=== PATIENT | male | born 1960 | race Caucasian/White ===

== ENCOUNTER 2017-07-16 18:45 | Inpatient (IN) ==
[2017-07-16] MEDS ORDERED: 0.9 % Sodium Chloride 500 ML IVC ONE (19:08)
--- NOTE | 2017-07-16 19:08 | Emergency Department Note ---
Disposition Clinical Impression: Hyponatremia, Hyperammonemia Cirrhosis Qualifiers: Hepatic cirrhosis type: alcoholic cirrhosis Ascites presence: with ascites Qualified Code(s): K70.31 - Alcoholic cirrhosis of liver with ascites Anemia Qualifiers: Anemia type: unspecified type Qualified Code(s): D64.9 - Anemia, unspecified Hypotension Qualifiers: Hypotension type: unspecified hypotension type Qualified Code(s): I95.9 - Hypotension, unspecified Disposition: Admitted As Inpatient Time of Disposition: 21:14 General Adult HPI - General Chief complaint: ED Shortness of Breath/Dyspnea Stated complaint: S/P stent placement DAVID weakness Time Seen by Provider: 07/16/17 19:06 Source: patient Limitations: no limitations Nursing Notes Reviewed: Yes Vital Signs Reviewed: Yes - History of Present Illness HPI Narrative: 57-year-old male history of alcohol cirrhosis and CAD presents to emergency department for complaints of weakness and difficulty breathing. 3 weeks ago he had a heart catheterization with stent placement. He is on aspirin. Since then he has been feeling more week than usual. He typically gets paracentesis twice a week his most recent today at 9 o'clock by interventional radiology. He reports roughly 5 L of fluid was removed. He denies any abdominal pain or tenderness. He states despite having fluid taken off his belly it still appears larger than typically after paracentesis. He does not take lactulose. He complains of a nonproductive cough. He is a smoker and is currently on Chantix to quit. He denies any chest pain at this time. He reports some lightheadedness but denies any syncope. Denies any nausea or vomiting. He denies any falls or trauma. Pain Scale: 0 - Related Data Home Medications Medication Instructions Recorded Confirmed No Known Home Drugs 07/16/17 07/16/17 Allergies Allergy/AdvReac Type Severity Reaction Status Date / Time No Known Allergies Allergy Verified 07/16/17 20:01 All systems ED: reviewed and negative except as stated. Review of Systems: As Per HPI Constitutional: Reports: weakness. Denies: fever, chills ENT ED: Denies: congestion Cardiovascular: Denies: chest pain Respiratory: Reports: cough, dyspnea Gastrointestinal: Denies: abdominal pain, nausea, vomiting, diarrhea Genitourinary: Denies: urgency, dysuria Musculoskeletal: Denies: back pain, neck pain Integumentary: Denies: rash, abrasion Neurological: Denies: headache, weakness, numbness, confusion Endocrine: Reports: fatigue Past Medical History - Past Medical History Attestation: Yes The following information was validated with the patient. Source: patient Medical history: Reports: non-contributory Psychiatric history: Reports: no psych history - Social History Smoking Status: Never smoker Smokeless Tobacco Status: No Alcohol use: Reports: none Drug use: Reports: none Physical Exam - General Limitations: no limitations General appearance: alert, in no apparent distress - Head Head exam: atraumatic, normocephalic, normal inspection - Eye Eye exam: Present: normal appearance, PERRL, EOMI, scleral icterus (MILD) - ENT ENT exam: normal exam, normal oropharynx, mucous membranes moist - Neck Neck exam: Present: normal inspection, full ROM, trachea midline - Chest Chest inspection: Present: normal inspection, symmetric chest wall rise. Absent : tenderness - Respiratory Respiratory exam: Present: wheezes (MILD, EXPIRATORY). Absent: respiratory distress - Cardiovascular Cardiovascular exam: Present: regular rate, normal rhythm, normal heart sounds. Absent: systolic murmur, diastolic murmur - Abdominal Exam Abdominal exam: Present: soft, Non-Tender, distention, ascites. Absent: tenderness, guarding, rebound, rigidity - Extremities Exam Extremities exam: Present: normal inspection, full ROM, pedal edema (BILATERAL + 2 PITTING). Absent: tenderness - Neurological Exam Neurological exam: Present: alert, oriented X3, other (ASTERIXIS) - Psychiatric Psychiatric exam: Present: normal mood, flat affect - Skin Skin exam: Present: other (JAUNDICE) Course Course Narrative: Elif was seen on arrival here in emergency department. His vital signs she is hypotensive systolic 72 to 80. On rechecking remains low. Will infuse some albumin given his recent paracentesis. Lungs are wheezing bilaterally. Abdomen remains large with fluid way but not fully distended. No abdominal tenderness. He has Asterix is on examination. He is jaundice. He states he is not a candidate for transplant. He sees gastroenterology Dr. Turner. His heart catheterization was performed at [facility]. Will attempt to obtain records. Will check basic labs, hepatic panel, INR, ammonia level as well as a chest x-ray. - Reevaluation(s) Reevaluation #1: Labs reviewed shows critical hyponatremia 119 with elevated potassium 6.1. Creatinine's normal 1.19. Ammonia is elevated 111. His troponin was less than 0.03. His blood pressure has increased slightly with albumin infusion. Currently infusing still but his MAPs remain >65. Patient remains awake alert and oriented. Abdomen remain soft but mildly distended. No abdominal tenderness. Patient will be administered Lasix to help some diuresis. Lactulose and rifaximin have been ordered. Patient has been accepted to the intensive care unit for continued monitoring of hyponatremia. He remains in stable condition. Impression is cirrhosis, hypotension s/p paracentesis, hyperammonemia, hyponatremia. - Consultations Consultation #1: Spoke with on-call hospitalist oliver Jeter to admit to intensive care unit or hyponatremia, weakness, hyperammonemia, cirrhosis, hypotension. No further orders at this time Time: 21:12 Vital Signs Temperature 97.8 F 07/16/17 18:48 Pulse Rate 66 07/16/17 18:48 Respiratory Rate 18 07/16/17 18:48 Blood Pressure 78/40 07/16/17 18:48 O2 Sat by Pulse Oximetry 98 07/16/17 18:48 Temperature 98.7 F 07/17/17 05:00 Pulse Rate 64 07/17/17 05:00 Respiratory Rate 22 07/17/17 05:00 Blood Pressure 83/45 07/17/17 05:00 O2 Sat by Pulse Oximetry 97 07/17/17 05:00 Oxygen Delivery Oxygen Delivery Room Air Medical Decision Making - MDM Narrative Medical decision making narrative: Patient was discussed with my attending physician who agrees with ED management and final disposition. They independently evaluated the patient. Please refer to their attestation to this encounter for additional information. This note was generated by [employer] voice recognition software and as a result grammatical or spelling errors may occur using this program. - Medical Records Medical records reviewed: Yes I reviewed the patient's medical records. - Lab Data Lab results reviewed: Yes I reviewed the patient's lab results. Result diagrams: 07/17/17 02:20 07/17/17 02:20 Lab Results 07/16/17 07/16/17 07/16/17 Range/Units 19:30 19:30 19:30 WBC 9.0 (4.3-11.1) K/mcL RBC 2.34 L (4.19-5.50) M/mcL Hgb 7.8 L (12.9-16.9) g/dL Hct 21.1 L (37.5-50.1) % MCV 90.2 (83.0-100.0) fL MCH 33.3 (28.0-33.3) pg MCHC 37.0 H (31.6-35.5) g/dL RDW 15.5 H (11.5-14.5) % Plt Count 168 (140-400) K/mcL MPV 9.7 (9.4-12.4) fL Immature Gran % 3.0 (0-4) % Seg Neutrophils % 78.2 % Lymphocytes % 8.5 % Monocytes % 8.7 % Eosinophils % 1.3 % Basophils % 0.3 % Neutrophils # 7.0 (1.6-8.9) K/mcL Lymphocytes # 0.8 (0.6-4.6) K/mcL Monocytes # 0.8 (0.0-1.3) K/mcL Eosinophils # 0.1 (0.0-0.6) K/mcL Basophils # 0.0 (0.0-0.2) K/mcL PT 16.0 H (9.4-12.1) Seconds INR 1.5 APTT 28.9 (26.0-36.0) Seconds Sodium 119 L* (136-145) mEq/L Potassium 6.1 H (3.5-5.1) mEq/L Chloride 90 L (98-107) mEq/L Carbon Dioxide 27 (23-29) mEq/L BUN 52 H (6-20) mg/dL Creatinine 1.19 (0.70-1.30) mg/dL Est GFR ( Amer) > 60 (> 60) Est GFR (Non-Af Amer) > 60 (> 60) BUN/Creatinine Ratio 44 H (6-26) Glucose 150 H (70-105) mg/dL Calculated Osmolality 265 L (280-300) Lactic Acid (0.5-2.2) mmol/L Calcium 7.9 L (8.6-10.3) mg/dL Total Bilirubin 1.0 (0.3-1.0) mg/dL Direct Bilirubin 0.2 (0.0-0.2) mg/dL Indirect Bilirubin 0.8 (0.0-1.2) mg/dL AST 36 (13-39) Units/L ALT 31 (7-52) Units/L Alkaline Phosphatase 76 (34-104) Units/L Ammonia (16-53) mcmol/L Troponin I < 0.03 (< 0.04) ng/mL B-Natriuretic Peptide (Less than 100) pg/mL Serum Total Protein 4.8 L (6.4-8.9) g/dL Albumin 2.2 L (3.5-5.7) g/dL Globulin 2.6 (2.4-3.5) g/dL Albumin/Globulin Ratio 0.8 L (1.1-2.2) Urine Color (Yellow) Urine Clarity (Clear) Urine pH (5.0-8.0) pH Units Ur Specific [place] (1.010-1.025) Urine Protein (Neg-Trace) mg/dL Urine Glucose (UA) (Normal) mg/dL Urine Ketones (Negative) mg/dL Urine Blood (Negative) Urine Nitrite (Negative) Urine Bilirubin (Negative) Urine Urobilinogen (Normal) mg/dL Ur Leukocyte Esterase (Negative) Urine Microscopic RBC (0-3) per hpf Urine Microscopic WBC (0-3) per hpf Ur Squamous Epith Cells (None-Few) per lpf Urine Bacteria (None-Few) per hpf Hyaline Casts (None-Few) per lpf Ur Culture Indicated? (NO) 07/16/17 07/16/17 07/16/17 Range/Units 19:30 19:30 19:30 WBC (4.3-11.1) K/mcL RBC (4.19-5.50) M/mcL Hgb (12.9-16.9) g/dL Hct (37.5-50.1) % MCV (83.0-100.0) fL MCH (28.0-33.3) pg MCHC (31.6-35.5) g/dL RDW (11.5-14.5) % Plt Count (140-400) K/mcL MPV (9.4-12.4) fL Immature Gran % (0-4) % Seg Neutrophils % % Lymphocytes % % Monocytes % % Eosinophils % % Basophils % % Neutrophils # (1.6-8.9) K/mcL Lymphocytes # (0.6-4.6) K/mcL Monocytes # (0.0-1.3) K/mcL Eosinophils # (0.0-0.6) K/mcL Basophils # (0.0-0.2) K/mcL PT (9.4-12.1) Seconds INR APTT (26.0-36.0) Seconds Sodium (136-145) mEq/L Potassium (3.5-5.1) mEq/L Chloride (98-107) mEq/L Carbon Dioxide (23-29) mEq/L BUN (6-20) mg/dL Creatinine (0.70-1.30) mg/dL Est GFR ( Amer) (> 60) Est GFR (Non-Af Amer) (> 60) BUN/Creatinine Ratio (6-26) Glucose (70-105) mg/dL Calculated Osmolality (280-300) Lactic Acid 1.7 (0.5-2.2) mmol/L Calcium (8.6-10.3) mg/dL Total Bilirubin (0.3-1.0) mg/dL Direct Bilirubin (0.0-0.2) mg/dL Indirect Bilirubin (0.0-1.2) mg/dL AST (13-39) Units/L ALT (7-52) Units/L Alkaline Phosphatase (34-104) Units/L Ammonia 111 H (16-53) mcmol/L Troponin I (< 0.04) ng/mL B-Natriuretic Peptide 18 (Less than 100) pg/mL Serum Total Protein (6.4-8.9) g/dL Albumin (3.5-5.7) g/dL Globulin (2.4-3.5) g/dL Albumin/Globulin Ratio (1.1-2.2) Urine Color (Yellow) Urine Clarity (Clear) Urine pH (5.0-8.0) pH Units Ur Specific [place] (1.010-1.025) Urine Protein (Neg-Trace) mg/dL Urine Glucose (UA) (Normal) mg/dL Urine Ketones (Negative) mg/dL Urine Blood (Negative) Urine Nitrite (Negative) Urine Bilirubin (Negative) Urine Urobilinogen (Normal) mg/dL Ur Leukocyte Esterase (Negative) Urine Microscopic RBC (0-3) per hpf Urine Microscopic WBC (0-3) per hpf Ur Squamous Epith Cells (None-Few) per lpf Urine Bacteria (None-Few) per hpf Hyaline Casts (None-Few) per lpf Ur Culture Indicated? (NO) 07/16/17 Range/Units 23:10 WBC (4.3-11.1) K/mcL RBC (4.19-5.50) M/mcL Hgb (12.9-16.9) g/dL Hct (37.5-50.1) % MCV (83.0-100.0) fL MCH (28.0-33.3) pg MCHC (31.6-35.5) g/dL RDW (11.5-14.5) % Plt Count (140-400) K/mcL MPV (9.4-12.4) fL Immature Gran % (0-4) % Seg Neutrophils % % Lymphocytes % % Monocytes % % Eosinophils % % Basophils % % Neutrophils # (1.6-8.9) K/mcL Lymphocytes # (0.6-4.6) K/mcL Monocytes # (0.0-1.3) K/mcL Eosinophils # (0.0-0.6) K/mcL Basophils # (0.0-0.2) K/mcL PT (9.4-12.1) Seconds INR APTT (26.0-36.0) Seconds Sodium (136-145) mEq/L Potassium (3.5-5.1) mEq/L Chloride (98-107) mEq/L Carbon Dioxide (23-29) mEq/L BUN (6-20) mg/dL Creatinine (0.70-1.30) mg/dL Est GFR ( Amer) (> 60) Est GFR (Non-Af Amer) (> 60) BUN/Creatinine Ratio (6-26) Glucose (70-105) mg/dL Calculated Osmolality (280-300) Lactic Acid (0.5-2.2) mmol/L Calcium (8.6-10.3) mg/dL Total Bilirubin (0.3-1.0) mg/dL Direct Bilirubin (0.0-0.2) mg/dL Indirect Bilirubin (0.0-1.2) mg/dL AST (13-39) Units/L ALT (7-52) Units/L Alkaline Phosphatase (34-104) Units/L Ammonia (16-53) mcmol/L Troponin I (< 0.04) ng/mL B-Natriuretic Peptide (Less than 100) pg/mL Serum Total Protein (6.4-8.9) g/dL Albumin (3.5-5.7) g/dL Globulin (2.4-3.5) g/dL Albumin/Globulin Ratio (1.1-2.2) Urine Color Yellow (Yellow) Urine Clarity Clear (Clear) Urine pH 5.5 (5.0-8.0) pH Units Ur Specific [place] 1.016 (1.010-1.025) Urine Protein Negative (Neg-Trace) mg/dL Urine Glucose (UA) Normal (Normal) mg/dL Urine Ketones Negative (Negative) mg/dL Urine Blood Negative (Negative) Urine Nitrite Negative (Negative) Urine Bilirubin Negative (Negative) Urine Urobilinogen Normal (Normal) mg/dL Ur Leukocyte Esterase Negative (Negative) Urine Microscopic RBC 3-5 H (0-3) per hpf Urine Microscopic WBC 0-3 (0-3) per hpf Ur Squamous Epith Cells Moderate H (None-Few) per lpf Urine Bacteria None Seen (None-Few) per hpf Hyaline Casts None Seen (None-Few) per lpf Ur Culture Indicated? NO (NO) - Radiology Data Radiology results reviewed: Yes I reviewed the patient's radiology results. Chest X-Ray 07/16/17 19:07 IMPRESSION: No acute abnormality is identified. D/ / Pieter Eric MD / Pieter Eric MD Interpreting Provider: Pieter Eric MD - EKG Data EKG #1 EKG attestation: Yes I reviewed and interpreted this EKG. EKG results narrative: EKG performed 1900 normal sinus rhythm 65 beats per minute, normal axis, no ST elevation or depression, possible incomplete right bundle branch, intervals within normal limits. There is no old EKG available for comparison at this time. No acute ischemic changes. Attestation Statement - Attestation Attestation: I examined this patient and my medical decision-making was reviewed with the Resident Physician. I agree with the documented findings, disposition and treatment plan as described except to the extent set forth below. Hyponatremia , weakness, hyperkalemia. We will proceed with treatment of hyperkalemia as well as treatment of hyponatremia. I do suspect there is normal serum body sodium but volume overload. We will proceed with diuresis. Patient will be admitted the intensive care unit. He did have low blood pressure and was requiring albumin. I spent greater than 35 minutes of critical care time resuscitating this acutely ill male suffering from hypotension, hyponatremia, ascites. This was excluding billable procedures.
[2017-07-16] MEDS ORDERED: Albumin 25% 25gram/100mL 25 GM/100 ML IV.SOLN IVPB ONE (19:18)
[2017-07-16] MEDS ORDERED: Albumin 25% 25gram/100mL 25 GM/100 ML IV.SOLN IVC SCH (19:30)
[2017-07-16] MEDS ORDERED: Ipratropium/Albuterol Neb 3 ML IH ONE (19:43)
[2017-07-16 19:48] LABS: Basophils % 0.3 %; Eosinophils # 0.1 K/mcL (0.0-0.6); Eosinophils % 1.3 %; Hematocrit 21.1 % (37.5-50.1); Lymphocytes # 0.8 K/mcL (0.6-4.6); Lymphocytes % 8.5 %; Mean Corpuscular Hemoglobin 33.3 pg (28.0-33.3); Mean Corpuscular Volume 90.2 fL (83.0-100.0); Mean Platelet Volume 9.7 fL (9.4-12.4); Monocytes # 0.8 K/mcL (0.0-1.3); Monocytes % 8.7 %; Platelet Count 168 K/mcL (140-400); Red Blood Count 2.34 M/mcL (4.19-5.50); Red Cell Distribution Width 15.5 % (11.5-14.5); Segmented Neutrophils % 78.2 %
[2017-07-16 19:49] LABS: Hemoglobin 7.8 g/dL (12.9-16.9)
[2017-07-16 19:53] LABS: INR 1.5
[2017-07-16 19:55] LABS: Activated Partial Thrombo Time 28.9 Seconds (26.0-36.0)
[2017-07-16 20:12] LABS: Alanine Aminotransferase 31 Units/L (7-52); Albumin 2.2 g/dL (3.5-5.7); Albumin/Globulin Ratio 0.8 (1.1-2.2); Alkaline Phosphatase 76 Units/L (34-104); Aspartate Amino Transferase 36 Units/L (13-39); BUN/Creatinine Ratio 44 (6-26); Bilirubin,Direct 0.2 mg/dL (0.0-0.2); Bilirubin,Indirect 0.8 mg/dL (0.0-1.2); Blood Urea Nitrogen 52 mg/dL (6-20); Calcium 7.9 mg/dL (8.6-10.3); Carbon Dioxide 27 mEq/L (23-29); Chloride 90 mEq/L (98-107); Globulin 2.6 g/dL (2.4-3.5); Glucose 150 mg/dL (70-105); Osmolality,Calculated 265 (280-300); Potassium 6.1 mEq/L (3.5-5.1); Sodium 119 mEq/L (136-145); Total Protein 4.8 g/dL (6.4-8.9); Troponin I < 0.03 ng/mL (< 0.04); eGFR For African Americans > 60 (> 60); eGFR For Non-African Americans > 60 (> 60)
[2017-07-16] MEDS ORDERED: Furosemide 40 MG/4 ML VIAL IVP ONE (20:44)
[2017-07-16] MEDS ORDERED: Lactulose Oral Soln 20 GM/30 ML UDC PO ONE (20:45)
[2017-07-16 23:21] LABS: Bilirubin,Urine Negative (Negative); Blood,Urine Negative (Negative); Clarity,Urine Clear (Clear); Color,Urine Yellow (Yellow); Glucose,Urine (UA) Normal (Normal); Ketones,Urine Negative (Negative); Leukocyte Esterase,Urine Negative (Negative); Nitrite,Urine Negative (Negative); PH,Urine 5.5 pH Units (5.0-8.0); Protein,Urine Negative (Neg-Trace); Specific Gravity,Urine 1.016 (1.010-1.025); Urobilinogen,Urine Normal (Normal)
[2017-07-16 23:23] LABS: Bacteria,Urine None Seen per hpf (None-Few); Hyaline Casts,Urine None Seen per lpf (None-Few); Squamous Epithelial Cell,Urine Moderate per lpf (None-Few); WBC,Urine 0-3 per hpf (0-3)
[2017-07-17] MEDS ORDERED: Naloxone 0.4 MG/ML INJ IVP PRN (01:14)
[2017-07-17] MEDS: Hydrocortisone Sodium Succ 100 MG/2 ML VIAL IVP SCH ×2 (01:39→08:36)
[2017-07-17] MEDS: Pantoprazole 40 MG in 0.9 % Sodium Chloride Mini Bag 100 ML IVC SCH ×5 (01:41→21:57)
--- NOTE | 2017-07-17 01:53 | Internal Med History&Physical ---
Date of Encounter: 07/17/17 Time of Encounter: 00:10 Internal Medicine - H&P: HPI Chief complaint: weakness; difficulty breathing; coffee ground emesis Admitted From: Emergency Dept Plans for Post Hospital Care: Home History of present illness: Mr. Hutchinson is a 57 year old male who presents to our ER tonight with complaints of weakness, shortness of breath, coffee-ground emesis, and occasional vomiting blood. He was seen in the ER and admitted to ICU because of critical hyponatremia, hyperkalemia, and anemia. Upon my assessment of the patient, patient appears mildly jaundiced, has significant ascites, and has physical stigmata of cirrhosis. He has never been here before and we have no old records on patient. I met with patient and his at length and obtained history. Patient suffers from cirrhosis secondary to alcoholism. Hes been alcohol free for almost a year now. He follows with a pony ride attendant in [place] and had paracentesis done today. He has this procedure done every 2 weeks for therapeutic intervention. He is a liver transplant candidate at [facility], but he was recently taken off the transplant list due to recent angioplasty and stent placement in his coronary arteries. This was also done at [facility] as well. He takes aspirin and Plavix now, and he has noted increased stomach upset, coffee-ground emesis, occasional vomiting blood. After his paracentesis today, he felt weak, dizzy, and unable to stand. He was unable stay home, so he sought help. He and his decided to come to [facility] and [facility] and/or [facility]. Therefore, he was evaluated in the ER and admitted to hospitalist group. As he was being transported to the ICU from the ER, patient had a large episode of coffee-ground emesis. He remains borderline hypotensive, pale, and weak. I inquired about the possibility of esophageal varices. Patient and do not believe he has had varices, but they cannot confirm this. His last EGD was over a year ago. The GI bleeding he's encountered is relatively new over the last few days. I discussed with patient and his that he most likely needs to be at a [facility] with hepatology and transplant services. Furthermore, we do not have any gastroenterology coverage [facility] in the event he develops a variceal bleed. Our endoscopist diego is Dr. Tovar, and I called and confirmed with him that he does not perform variceal banding. Therefore, I recommended transfer to a [facility] such as [facility] or [facility]. Patient and his both refused transfer and requested to stay here. I emphasized to them that in the event he develops an acute variceal bleed, this can be life- threatening and may result in , especially given that we do not have the capability to stabilize such a bleed at this moment. They both voiced understanding and still requested to stay here, assuming the risk of variceal bleed. Should he stabilize and not have any further bleeding, we will consult GI in the morning, but they are presently unavailable for endoscopy services. I explained to them in great detail the possibility of variceal bleeding, inability to control the bleed, and the likelihood of imminent in such an event without GI services being available. They again voiced understanding and were adamant at remaining at [facility] and not transferring to any facility at this time. As such, we will proceed with conservative measures as best we can. I will transfuse him with blood products, give him vitamin K for coagulopathy of liver disease, monitor him in ICU closely, and consult pulmonology and gastroenterology in the morning when they are available. Past Med Surg Social Fam HX - Past Medical History Attestation: Yes The following information was validated with the patient. Source: patient, obtained from family Medical history: cirrhosis, coronary artery disease Psychiatric history: no psych history - Past Surgical History Surgical History: angioplasty/stent - Social History Smoking Status: Never smoker Packs per day: 2 Smokeless Tobacco Status: No Alcohol use: none Drug use: none Current living situation: Home, With Family Activity Level: Independent ambulation Recent Out of Country Travel Within the Last 8 Weeks: No Additional social history: frmer heavy drinker -- alcoholism; quit drinking August - Family History Mother Living Status: Internal Medicine - H&P: Meds No Known Home Drugs 07/16/17 [History] 3 Allergy/AdvReac Type Severity Reaction Status Date / Time No Known Allergies Allergy Verified 07/16/17 20:01 - Constitutional Constitutional: fatigue, lethargy, weakness, no fever(s) - EENT Eyes: no blurry vision, no change in vision Ears: no ear pain, no tinnitus Nose, mouth and throat: no nasal congestion, no sinus pressure, no sore throat - Cardiovascular Cardiovascular ROS IM: dyspnea, dyspnea on exertion, edema, orthopnea, no chest pain - Respiratory Respiratory: no cough, no hemoptysis, no chest congestion, no excessive phlegm production, no change in phlegm color - Gastrointestinal Gastrointestinal: bloating, coffee ground emesis, hematemesis, no abdominal pain , no diarrhea, no hematochezia, no melena, no nausea - Genitourinary Genitourinary ROS male: no dysuria, no flank pain, no hematuria - Musculoskeletal Musculoskeletal ROS IM: no muscle cramps, no myalgias - Integumentary Integumentary IM: unusual bruising, jaundice, no rash - Neurological Neurological ROS: weakness, no dizziness, no focal weakness, no frequent falls, no headache(s) - Psychiatric Psychiatric: no anxiety, no depression - Endocrine Endocrine IM: no cold intolerance, no polydipsia, no polyuria - Hematologic/Lymphatic Hematologic/Lymphatic: easy bruising, no lymphadenopathy - Allergic/Immunologic Allergic/Immunologic: no GI upset with certain foods - Constitutional Vitals: Temp Pulse Resp BP Pulse Ox 97.8 F 63 18 85/46 96 07/16/17 23:48 07/17/17 01:00 07/17/17 01:00 07/17/17 01:00 07/17/17 01:00 General appearance: Present: mild distress, A&O X 3, answers questions appropriately Exam: weak, pale, jaundiced - Head Head exam: Present: atraumatic, normal inspection - Eye Eye exam: Present: EOMI, PERRL, scleral icterus Pupils: Present: normal accommodation - ENT ENT exam: Present: mucous membranes dry, normal oropharynx - Neck Neck exam general surgery: Present: full ROM, supple. Absent: tenderness, nuchal rigidity, thyromegaly - Respiratory Respiratory exam: Present: CTAB. Absent: chest wall tenderness, rales, rhonchi , wheezes - Cardiovascular Cardiovascular exam: Present: RRR, +S1, +S2. Absent: diastolic murmur, JVD, systolic murmur - GI/Abdominal GI/Abdominal exam: Present: distended, soft, tenderness (minimal tenderness). Absent: guarding, hepatomegaly, mass, rebound, splenomegaly Additional comments: + fluid wave and shifting dullness - Extremities Exam Extremities exam: Present: full ROM, pedal edema (2+), warm, radial pulses palpable and symmetrical. Absent: calf tenderness, joint swelling, normal capillary refill (delayed; roguhly 4 seconds) - Back Exam Back exam: Absent: CVA tenderness (L), CVA tenderness (R) - Neurological Exam Neurological exam: Present: alert, oriented X3, no focal deficits Additional comments: weak and fatigued but no focal deficits - Psychiatric Psychiatric exam: Present: flat affect. Absent: anxious, depressed, homicidal ideation, suicidal ideation - Skin Skin exam: Present: dry, pallor, warm Additional comments: bruising and subtle jaundice throughout Internal Med - H&P Results - Labs CBC & Chem 7: 07/17/17 02:20 07/17/17 02:20 - EKG Data -: EKG Interpreted by Myself - EKG Data Prior EKG available for review: no EKG comments: 07/17/17 02:17 NSR; incomplete RBBB - Diagnostic Studies Chest x-ray Status: image reviewed by me (negative) - Assessment and plan (1) UGI bleed Current Visit: Yes Status: Acute Assessment and plan: 1. I suspect variceal bleed and/or gastric ulcer. 2. npo. 3. Protonix drip. 4. Transfuse blood products and monitor H/H closely. 5. Consult GI in the morning -- presently unavailable. 6. Recommend transfer to a tertiary care medical/transplant center -- patient and refuse. 7. Patient at high risk of if he develops a variceal bleed tonight in the absence of gastroenterology services. 8. Vitamin K given in hopes of reversing coagulopathy of liver disease. Total of 75 minutes critical care time with patient (2) CAD (coronary artery disease) Current Visit: Yes Status: Chronic Assessment and plan: 1. Unable to administer ASA or Plavix due to active GI bleed. 2. Patient denies chest pain. 3. Patient at risk of STENT failure/thrombosis in the absence of ASA/Plavix. However, risk of GI bleeding and are greater at this moment and preclude treatment with dual anti-platelet therapy. Resume once GI bleeding stabilized. 4. Will trend troponins and order ECHO. Qualifiers: Coronary Disease-Associated Artery/Lesion type: [place] artery [place] vs. transplanted heart: [place] heart Associated angina: without angina Qualified Code(s): I25.10 - Atherosclerotic heart disease of [place] coronary artery without angina pectoris (3) Cirrhosis Current Visit: Yes Status: Chronic Assessment and plan: 1. Patient needs to follow with hepatology at a transplant center. 2. Patient and refuse to be transferred at this time. 3. Consult GI this morning when available. 4. Ultimately, patient will need services not available here at [facility]. Qualifiers: Hepatic cirrhosis type: alcoholic cirrhosis Ascites presence: with ascites Qualified Code(s): K70.31 - Alcoholic cirrhosis of liver with ascites (4) Hyponatremia Current Visit: Yes Status: Acute Assessment and plan: 1. Likely due to Cirrhosis. 2. Patient is volume overloaded due to cirrhosis. 3. Monitor serum sodium levels clsoely. 4. Given hyponatrmeia and hyperkalemia in the setting of weakness and hypotension, I worry about adrenal insufficiency. As such, will treat empirically with Hydorcortisone 100 mg IV Q8H. (5) DVT prophylaxis Current Visit: Yes Status: Acute Assessment and plan: 1. EPCD's.
[2017-07-17 03:15] LABS: Basophils % 0.1 %; Eosinophils % 0.4 %; Hematocrit 18.1 % (37.5-50.1); Hemoglobin 6.4 g/dL (12.9-16.9); Immature Granulocytes % 1.2 % (0-4); Lymphocytes # 0.8 K/mcL (0.6-4.6); Lymphocytes % 10.5 %; Mean Corpuscular HGB Conc 35.4 g/dL (31.6-35.5); Mean Corpuscular Hemoglobin 31.7 pg (28.0-33.3); Mean Corpuscular Volume 89.6 fL (83.0-100.0); Mean Platelet Volume 9.6 fL (9.4-12.4); Monocytes # 0.8 K/mcL (0.0-1.3); Monocytes % 10.7 %; Neutrophils # 5.8 K/mcL (1.6-8.9); Platelet Count 117 K/mcL (140-400); Red Blood Count 2.02 M/mcL (4.19-5.50); Red Cell Distribution Width 15.2 % (11.5-14.5); Segmented Neutrophils % 77.1 %
[2017-07-17 03:19] LABS: INR 1.4; Prothrombin Time 15.6 Seconds (9.4-12.1)
[2017-07-17 03:22] LABS: Activated Partial Thrombo Time 28.7 Seconds (26.0-36.0)
[2017-07-17 03:30] LABS: Alanine Aminotransferase 33 Units/L (7-52); Albumin 2.5 g/dL (3.5-5.7); Alkaline Phosphatase 62 Units/L (34-104); Aspartate Amino Transferase 40 Units/L (13-39); BUN/Creatinine Ratio 51 (6-26); Bilirubin,Direct 0.3 mg/dL (0.0-0.2); Bilirubin,Indirect 0.7 mg/dL (0.0-1.2); Blood Urea Nitrogen 60 mg/dL (6-20); Calcium 8.2 mg/dL (8.6-10.3); Carbon Dioxide 26 mEq/L (23-29); Chloride 91 mEq/L (98-107); Globulin 2.4 g/dL (2.4-3.5); Glucose 141 mg/dL (70-105); Osmolality,Calculated 273 (280-300); Potassium 5.6 mEq/L (3.5-5.1); Sodium 122 mEq/L (136-145); Total Protein 4.9 g/dL (6.4-8.9); eGFR For African Americans > 60 (> 60); eGFR For Non-African Americans > 60 (> 60)
[2017-07-17] MEDS ORDERED: 0.9 % Sodium Chloride 250 ML ONE (04:15)
[2017-07-17] MEDS ORDERED: MetroNIDAZOLE 500 MG/100 ML 500 MG/100 ML BAG IVPB SCH (08:00)
--- NOTE | 2017-07-17 08:26 | Pulmonology Consult Note ---
<Lai Brody W - Last Filed: 07/17/17 10:39> Date of Encounter: 07/17/17 Medications and Allergies Ammonium Lactate [Ammonium Lactate] 1 appl TP BID 07/17/17 [History] Aspirin [Lo-Dose Aspirin EC] 81 mg PO DAILY 07/17/17 [History] Calcium Carbonate [Calcium] 500 mg PO DAILY 07/17/17 [History] Carvedilol [Carvedilol] 3.125 mg PO BID 07/17/17 [History] Clopidogrel [Plavix] 75 mg PO DAILY 07/17/17 [History] DiphenhydraMINE [Benadryl] 50 mg PO HS PRN 07/17/17 [History] Ergocalciferol (VITAMIN D2) [Vitamin D2] 50,000 unit PO QWEEK 07/17/17 [History] Fluticasone/Salmeterol [Advair 250-50 Diskus] 1 puff IH BID 07/17/17 [History] Furosemide [Lasix] 80 mg PO DAILY 07/17/17 [History] Melatonin 8 mg PO HS 07/17/17 [History] Varenicline Tartrate [Chantix Starting Month YAMILET] 1 tab PO DAILY 07/17/17 [ History] 3 Allergy/AdvReac Type Severity Reaction Status Date / Time No Known Allergies Allergy Verified 07/17/17 08:53 All Systems: The remainder of the systems were reviewed and are negative Physical Examination Vital Signs: Vital Signs, Last 4 Hours Temp Pulse Resp BP Pulse Ox 07/17/17 09:00 63 16 111/58 96 07/17/17 08:00 65 16 104/52 97 07/17/17 07:37 98.0 F 07/17/17 07:36 61 07/17/17 07:00 62 14 106/46 98 07/17/17 06:56 97.3 F L 61 14 86/48 98 07/17/17 06:45 97.3 F L 58 16 86/48 96 07/17/17 06:00 65 18 90/47 99 Results - Laboratory Findings CBC and BMP: 07/17/17 02:20 07/17/17 02:20 PT/INR, D-dimer PT 15.6 Seconds (9.4-12.1) H 07/17/17 02:20 Abnormal lab findings: Abnormal lab results RBC 2.02 M/mcL (4.19-5.50) L 07/17/17 02:20 Hgb 6.4 g/dL (12.9-16.9) L 07/17/17 02:20 Hct 18.1 % (37.5-50.1) L 07/17/17 02:20 RDW 15.2 % (11.5-14.5) H 07/17/17 02:20 Plt Count 117 K/mcL (140-400) L 07/17/17 02:20 PT 15.6 Seconds (9.4-12.1) H 07/17/17 02:20 Sodium 122 mEq/L (136-145) L 07/17/17 02:20 Potassium 5.6 mEq/L (3.5-5.1) H 07/17/17 02:20 Chloride 91 mEq/L (98-107) L 07/17/17 02:20 BUN 60 mg/dL (6-20) H 07/17/17 02:20 BUN/Creatinine Ratio 51 (6-26) H 07/17/17 02:20 Glucose 141 mg/dL (70-105) H 07/17/17 02:20 POC Glucose 167 mg/dL (70-99) H 07/16/17 23:48 Calculated Osmolality 273 (280-300) L 07/17/17 02:20 Calcium 8.2 mg/dL (8.6-10.3) L 07/17/17 02:20 Direct Bilirubin 0.3 mg/dL (0.0-0.2) H 07/17/17 02:20 AST 40 Units/L (13-39) H 07/17/17 02:20 Ammonia 111 mcmol/L (16-53) H 07/16/17 19:30 Serum Total Protein 4.9 g/dL (6.4-8.9) L 07/17/17 02:20 Albumin 2.5 g/dL (3.5-5.7) L 07/17/17 02:20 Albumin/Globulin Ratio 1.0 (1.1-2.2) L 07/17/17 02:20 Urine Microscopic RBC 3-5 per hpf (0-3) H 07/16/17 23:10 Ur Squamous Epith Cells Moderate per lpf (None-Few) H 07/16/17 23:10 - Clinical Findings Intake & Output: Intake & Output 07/16/17 07/17/17 07/17/17 23:59 07:59 15:59 Intake Total 384 / 384 300 / 300 Output Total 900 / 900 Balance -516 / -516 300 / 300 Weight 97.5 kg Consult Discharge Plan - Plan Referrals: Pauline Hamilton [Primary Care Provider] - - Attending Attestation I examined this patient and my medical decision-making was reviewed with the Resident Physician. I agree with the documented findings, disposition and treatment plan as described except to the extent set forth below. We independently had [id number] contact with the patient Patient seen and examined at bedside Labs, radiology, chart personally reviewed. Management was reviewed during multidisciplinary critical care rounds. Iimpression/Plan Concern for GI hemorrahge ?Variceal origin - cont octreotide protonix. NPO IV access (extended peripheral) Ascites ?SBP defer paracentesis given DAPT and concern for hemorrhage ACute blood loss anemia tranfsuse to goal hbg>7 Cirrhosis mildly decompensated GI consulted. for eval/endoscopy Mild Hepatic Encephalopahty - start Lactulose DVT prophylaxis with SCDs CAD s/p PCI in last month on DAPT on hold becasue of bleed high risk for instent -resthrombosis cont to monitor. Hyponatremia without severe neurological sequelae st cirrhosis. Cont Volume expansion. check electrolytes. <Lashawn Hooper - Last Filed: 07/17/17 13:41> Date of Encounter: 07/17/17 Time of Encounter: 08:00 Assessment and Plan (1) UGI bleed Current Visit: Yes Status: Acute Concern for variceal bleed vs gastric ulcer. This is likely secondary to cirrhosis. Patient had coffee ground emesis prior to admission and then again on transfer from ER to ICU. Reported melena 2x recently. Denied hematechezia. Upon admission it was recommended to the patient to be transferred to a tertiary center however he and his declined despite risk of bleeding and . hemoglobin 7.9 (6.4) -2 PRBC given -1 FFP ordered -vascular access 2 EPIV -GI consulted, recommendations appreciated. GI is to perform endoscopy today. -STAT abdominal ultrasound pending -continue octreotide drip -IV Protonix drip -IV Zofran scheduled -q6H H&H -NPO (2) Ascites Current Visit: Yes Status: Acute Concern for SBP. Ascites secondary to liver cirrhosis. Patient gets paracentesis 2x a week, despite being on DAPT. Afebrile, WBC WNL -Start Zosyn -stop Flagyl and Cipro -blood cultures ordered Qualifiers: Qualified Code(s): K70.31 - Alcoholic cirrhosis of liver with ascites (3) Acute blood loss anemia Current Visit: Yes Status: Acute (4) Hyponatremia Current Visit: Yes Status: Acute Hyponatremia secondary to cirrhosis. No neurologic sequelae. Likely sodium is near his baseline sodium 122 -patient receiving albumin which will increase sodium -continue to monitor BMP, recheck this afternoon (5) Hyperammonemia Current Visit: Yes Status: Acute Hyperammonemia secondary to liver cirrhosis. Given lactulose in ED not demonstrating any sequelae of hepatic encephalopathy Ammonia 111 -starting lactulose (6) Cirrhosis Current Visit: Yes Status: Chronic History of known liver cirrhosis secondary to alcoholism. His gastroenterologists is located in [place] where he where he gets paracentesis twice a week. He reportedly was on the liver transplant list at [facility]. AST 40, ALT 33 PT 15.6, INR 1.4 albumin 2.5 -continue albumin Qualifiers: Hepatic cirrhosis type: alcoholic cirrhosis Ascites presence: with ascites Qualified Code(s): K70.31 - Alcoholic cirrhosis of liver with ascites (7) CAD (coronary artery disease) Current Visit: Yes Status: Chronic Patient reported stent placement 3 weeks ago at [facility], currently on DAPT -holding Plavix and aspirin due to concern of GIB, however high risk for stent re-thrombosis, will continue to monitor -echocardiogram ordered Qualifiers: Coronary Disease-Associated Artery/Lesion type: [place] artery [place] vs. transplanted heart: [place] heart Associated angina: without angina Qualified Code(s): I25.10 - Atherosclerotic heart disease of [place] coronary artery without angina pectoris (8) DVT prophylaxis Current Visit: Yes Status: Acute Continue SCD's History of Present Illness Consult date: 07/17/17 Requesting physician: Brenden Conde Reason for consult: other (GI bleed and hyponatremia) Chief complaint: Weakness History of present illness: Mr. Hutchinson is a 57 year old male with a past medical history of liver cirrhosis secondary to alcoholism, CAD who presented to [facility] complaining of weakness, coffee ground emesis when vomiting. He was admitted for hyponatremia , hyperkalemia, concerns of upper G.I. bleed. Hemoglobin decreased from 7.8 to 6.4. He was given 2 units of packed red blood cells and fresh frozen plasma. The patient has a history of CAD with angioplasty and stents placed in coronary arteries 3 weeks ago at [facility], and he is currently on DAPT therapy. He was also on the liver transplant list at [facility]. His gastroenterologists is located in [place] where he also gets paracentesis 2 times a week. The patient reported that ever since he had stents placed 3 weeks ago he has become increasingly weaker, and yesterday when he came in earlier that morning he had paracentesis performed. That evening he felt very weak and unable to stand. He reported having melena 2 times recently. As his drove him to the hospital and he vomited one time in the car and then again as he was being transferred from the ER to the ICU. He had large coffee- ground emesis. Upon his admission the hospitalist had recommended and encouraged the patient to be transferred to a tertiary hospital since at that time there was no insurance loss assessor for coverage. However, he and his were adamant about staying at [facility] despite the high risk of bleeding and from varices. In addition to PRBC he was given Cipro, Flagyl, albumin, IV Protonix, Lasix, radha- cortef. Past Med Surg Social Fam HX - Past Medical History Source: patient Medical history: cirrhosis, coronary artery disease Psychiatric history: no psych history - Past Surgical History Surgical History: angioplasty/stent - Social History Smoking Status: Never smoker Packs per day: 2 Smokeless Tobacco Status: No Alcohol use: none Drug use: none - Family History Mother Living Status: All Systems: The remainder of the systems were reviewed and are negative - Constitutional Constitutional: weakness, no chills, no fever(s) - EENT Eyes: no loss of vision - Cardiovascular Cardiovascular: edema, pedal edema, no chest pain, no palpitations - Respiratory Respiratory: no cough, no dyspnea, no wheezing - Gastrointestinal Gastrointestinal: hematemesis (Coffee ground emesis), melena, nausea, vomiting, no abdominal pain, no diarrhea, no hematochezia - Genitourinary Genitourinary: no change in urinary stream, no dysuria - Integumentary Integumentary: no rash - Neurological Neurological: no syncope Physical Examination Vital Signs: Vital Signs, Last 4 Hours Temp Pulse Resp BP Pulse Ox 07/17/17 07:37 98.0 F 07/17/17 07:36 61 07/17/17 07:00 62 14 106/46 98 07/17/17 06:56 97.3 F L 61 14 86/48 98 07/17/17 06:45 97.3 F L 58 16 86/48 96 07/17/17 06:00 65 18 90/47 99 07/17/17 05:00 98.7 F 64 22 83/45 97 07/17/17 04:55 98.6 F 63 14 96/60 98 07/17/17 04:45 98.7 F 62 16 107/42 96 General appearance: no acute distress, alert Eyes: nonicteric ENT: oropharynx moist Neck: supple Effort: normal Inspection: normal Auscultation: bilateral: clear Gastrointestinal: normoactive bowel sounds, soft, non-tender, other (Distended, fluid wave) Integumentary: normal Extremities: no cyanosis, edema (Bilateral minimal edema) Musculoskeletal: no deformities normal mental status, non-focal exam mood appropriate, affect normal Results - Laboratory Findings CBC and BMP: 07/17/17 10:31 07/17/17 02:20 PT/INR, D-dimer PT 15.6 Seconds (9.4-12.1) H 07/17/17 02:20 Abnormal lab findings: Abnormal lab results RBC 2.02 M/mcL (4.19-5.50) L 07/17/17 02:20 Hgb 6.4 g/dL (12.9-16.9) L 07/17/17 02:20 Hct 18.1 % (37.5-50.1) L 07/17/17 02:20 RDW 15.2 % (11.5-14.5) H 07/17/17 02:20 Plt Count 117 K/mcL (140-400) L 07/17/17 02:20 PT 15.6 Seconds (9.4-12.1) H 07/17/17 02:20 Sodium 122 mEq/L (136-145) L 07/17/17 02:20 Potassium 5.6 mEq/L (3.5-5.1) H 07/17/17 02:20 Chloride 91 mEq/L (98-107) L 07/17/17 02:20 BUN 60 mg/dL (6-20) H 07/17/17 02:20 BUN/Creatinine Ratio 51 (6-26) H 07/17/17 02:20 Glucose 141 mg/dL (70-105) H 07/17/17 02:20 POC Glucose 167 mg/dL (70-99) H 07/16/17 23:48 Calculated Osmolality 273 (280-300) L 07/17/17 02:20 Calcium 8.2 mg/dL (8.6-10.3) L 07/17/17 02:20 Direct Bilirubin 0.3 mg/dL (0.0-0.2) H 07/17/17 02:20 AST 40 Units/L (13-39) H 07/17/17 02:20 Ammonia 111 mcmol/L (16-53) H 07/16/17 19:30 Serum Total Protein 4.9 g/dL (6.4-8.9) L 07/17/17 02:20 Albumin 2.5 g/dL (3.5-5.7) L 07/17/17 02:20 Albumin/Globulin Ratio 1.0 (1.1-2.2) L 07/17/17 02:20 Urine Microscopic RBC 3-5 per hpf (0-3) H 07/16/17 23:10 Ur Squamous Epith Cells Moderate per lpf (None-Few) H 07/16/17 23:10 - Clinical Findings Intake & Output: Intake & Output 07/16/17 07/17/17 07/17/17 23:59 07:59 15:59 Intake Total 384 / 384 Output Total 900 / 900 Balance -516 / -516 Weight 97.5 kg
[2017-07-17] MEDS: Piperacillin/Tazobactam 3.375 GM in 0.9 % Sodium Chloride Mini Bag 100 ML IVPB SCH ×2 (08:36→17:12)
[2017-07-17] MEDS: Albumin 25% 25gram/100mL 25 GM/100 ML IV.SOLN IVPB SCH ×2 (08:36→17:13)
[2017-07-17] MEDS ORDERED: Octreotide 50 MCG/ML SYRINGE IVP ONE (09:48)
[2017-07-17] MEDS ORDERED: Octreotide 400 MCG in 0.9 % Sodium Chloride 100 ML IVC SCH (10:00)
[2017-07-17 11:02] LABS: Hematocrit 21.2 % (37.5-50.1); Hemoglobin 7.9 g/dL (12.9-16.9)
[2017-07-17] MEDS: Ondansetron 4 MG/2 ML VIAL IVP SCH ×2 (12:25→17:10)
--- NOTE | 2017-07-17 14:07 | Gastroenterology Consult Note ---
<Sheela Polkn Trish - Last Filed: 07/18/17 16:11> Date of Encounter: 07/18/17 Time of Encounter: 09:45 - Assessment and plan (1) UGI bleed Status: Acute Assessment and plan: 57 year old male with a history of cirrhosis. He presented with anemia and coffee ground emesis. He needs EGD to rule out peptic ulcer vs variceal bleed. Likely not variceal bleed as he denies any bright red emesis. He has had dark tarry stools, he denies abdominal pain. He is continued on protonix and octreotide drips. (2) Cirrhosis Status: Chronic Assessment and plan: Pt is followed by GI in [place], will send for records Qualifiers: Hepatic cirrhosis type: alcoholic cirrhosis Ascites presence: with ascites Qualified Code(s): K70.31 - Alcoholic cirrhosis of liver with ascites (3) Anemia Status: Acute Assessment and plan: plavix and asa on hold, will plan for EGD Qualifiers: Anemia type: iron deficiency Iron deficiency anemia type: other iron deficiency Qualified Code(s): D50.8 - Other iron deficiency anemias - Time Spent With Patient Total time spent is greater than 50% in coordination of care (as documented) at patient's floor/unit and/or counseling patient: GI History of Present Illness - Data of Consult Patient: new to practice Consult date: 07/17/17 Requesting Physician: Devin Huitron MD - Consult Narrative Reason for consult: upper GI bleed History of present illness: Mr. Hutchinson is a 57 year old male who presented to our ER with complaints of weakness, shortness of breath, coffee-ground emesis, and occasional vomiting blood. He was seen in the ER and admitted to ICU due to critical hyponatremia, hyperkalemia, and anemia. In ER he appeared mildly jaundiced, has significant ascites, and has physical stigmata of cirrhosis. He has a history of alcoholic cirrhosis, and has been alcohol free for almost a year now. He follows with a land clearer in [place] and had paracentesis done today, done biweekly. He was a liver transplant candidate at [facility] , but he was recently taken off the transplant list due to recent angioplasty and stent placement in his coronary arteries. He takes aspirin and Plavix now, and he has noted increased stomach upset, coffee-ground emesis, occasional vomiting blood. After his paracentesis today, he felt weak, dizzy, and unable to stand. As he was being transported to the ICU from the ER, patient had a large episode of coffee-ground emesis. Patient and his both refused transfer and requested to stay here. He has been transfused, given vit K and FFP , and started on protonix and octreotide drips. He is very drowsy but arousable and alert and oriented when awake. He states he does have a history of varices but they were not big enough to band. He denies abdominal pain, nausea or vomiting at this time. Past Med Surg Social Fam HX - Past Medical History Medical history: cirrhosis, coronary artery disease Psychiatric history: no psych history - Past Surgical History Surgical History: angioplasty/stent - Social History Smoking Status: Never smoker Packs per day: 2 Smokeless Tobacco Status: No Alcohol use: none Drug use: none - Family History Mother Living Status: Review of Systems: GI: as per [facility] GENERAL: denies fever, or chills EYES: yellow discoloration ENT: denies pain with swallowing or difficulty swallowing CARDIO: denies chest pain, palpitations RESP: Shortness of breath with exertion : dark urine NEURO: chronic weakness HEME: Denies any bruising MS: chronic back and joint pain DERM: denies rash or itching PSYCH: history of anxiety and depression - Constitutional Vitals: Temp Pulse Resp BP Pulse Ox 98.9 F 64 20 106/50 94 07/17/17 11:00 07/17/17 13:00 07/17/17 13:00 07/17/17 13:00 07/17/17 13:00 Exam: CONSTITUTIONAL:~drowsy, no acute distress.~HEAD:~normocephalic.~EYES:~ jaundice. ~NECK:~no obvious swelling.~HEART:~regular rate and rhythm, no murmurs.~LUNGS:~ bilateral fair air entry.~ABDOMEN:~ascites noted, nontender,RECTALEXAM:~ Deferred.~EXTREMITIES:~no clubbing, cyanosis, 1+ BLE edema.~SKIN:~jaundice noted.~NEUROLOGIC:~no obvious focal defect.~~~~ Results - Labs CBC & Chem 7: 07/17/17 18:27 07/17/17 18:27 Labs: Last Result Calcium 8.2 mg/dL (8.6-10.3) L 07/17/17 02:20 Troponin I < 0.03 ng/mL (< 0.04) 07/17/17 07:03 Entire Visit Hgb 7.9 g/dL (12.9-16.9) L D 07/17/17 10:31 Hct 21.2 % (37.5-50.1) L 07/17/17 10:31 PT 15.6 Seconds (9.4-12.1) H 07/17/17 02:20 Total Bilirubin 1.0 mg/dL (0.3-1.0) 07/17/17 02:20 AST 40 Units/L (13-39) H 07/17/17 02:20 ALT 33 Units/L (7-52) 07/17/17 02:20 Ammonia 111 mcmol/L (16-53) H 07/16/17 19:30 - ABG ABG results: PT/INR, D-dimer PT 15.6 Seconds (9.4-12.1) H 07/17/17 02:20 - Impressions Impressions Abdomen Ultrasound 07/17/17 08:24 IMPRESSION: 1. Cholelithiasis without biliary dilatation. 2. Small and nodular liver likely due to cirrhosis with sequela of portal hypertension with splenomegaly and ascites. D/ / Steven Hathaway MD / Steven Hathaway MD Interpreting Provider: Steven Hathaway MD Consult Discharge Plan - Plan Additional Instructions: follow up with PCP and [facility] Referrals: Pauline Hamilton [Primary Care Provider] - <Eladio Sweeney - Last Filed: 07/25/17 12:58> Date of Encounter: 07/18/17 - Time Spent With Patient Total time spent is greater than 50% in coordination of care (as documented) at patient's floor/unit and/or counseling patient: GI History of Present Illness - Data of Consult Requesting Physician: Devin Huitron MD - Consult Narrative History of present illness: Mr. Hutchinson is a 57 year old male - Constitutional Vitals: Temp Pulse Resp BP Pulse Ox 96.3 F L 63 20 104/42 98 07/17/17 21:13 07/17/17 21:43 07/17/17 21:43 07/17/17 21:43 07/17/17 21:43 Results - Labs CBC & Chem 7: 07/17/17 18:27 07/17/17 18:27 Labs: Last Result Calcium 8.5 mg/dL (8.6-10.3) L 07/17/17 18:27 Troponin I < 0.03 ng/mL (< 0.04) 07/17/17 07:03 Entire Visit Hgb 7.5 g/dL (12.9-16.9) L 07/17/17 18: Hct 21.1 % (37.5-50.1) L 07/17/17 18:27 PT 15.6 Seconds (9.4-12.1) H 07/17/17 02:20 Total Bilirubin 1.0 mg/dL (0.3-1.0) 07/17/17 02:20 AST 40 Units/L (13-39) H 07/17/17 02:20 ALT 33 Units/L (7-52) 07/17/17 02:20 Ammonia 111 mcmol/L (16-53) H 07/16/17 19:30 - ABG ABG results: PT/INR, D-dimer PT 15.6 Seconds (9.4-12.1) H 07/17/17 02:20 - Attending Attestation Jasper is a 13-year-old white male who has cirrhosis is good need an EGD because of coffee-ground emesis. Differential diagnosis of course as possible esophageal versus gastric varices noted versus portal hypertensive gastropathy versus some garden-variety peptic ulcer disease versus Elodia-Sommer tear recommendations made after endoscopy thank you for this consultation I have personally performed a face to face evaluation on this patient. I have reviewed and agree with the care plan. History and Exam by me shows:
--- NOTE | 2017-07-17 15:50 | Anesthesia Evaluation PreOp ---
Date of Encounter: 07/17/17 Time of Encounter: 15:48 - Past History Planned Operation: EGD Cardiac History: Cardiac Stent (NEW stents x 2 placed 06/22/2017 - Undetermined if BMS or PENNY [Request for records not yet received] - maintained on ASA & Plavix but NONE administered within 48hrs) Pulmonary History: Smoker (2ppd x 40yrs) Other Medical History: Hepatic (Cirrhosis and recently taken OFF Transplant list re: recent Cardiac stents. Paracentesis 2x/week approx 5L off each time.) , GERD (Admitted 07/17/2017 w/ coffee ground emesis, + Hx Variceal bleed,) Anesthesia History: No Prior Anesthetic Complications, Past Anesthesia (NO prior GA) Alcohol Use: none, heavy (FORMER heavy drinker, quit 08/2016) Drug use: none Medications and Allergies Ammonium Lactate [Ammonium Lactate] 1 appl TP BID 07/17/17 [History] Aspirin [Lo-Dose Aspirin EC] 81 mg PO DAILY 07/17/17 [History] Calcium Carbonate [Calcium] 500 mg PO DAILY 07/17/17 [History] Carvedilol [Carvedilol] 3.125 mg PO BID 07/17/17 [History] Clopidogrel [Plavix] 75 mg PO DAILY 07/17/17 [History] DiphenhydraMINE [Benadryl] 50 mg PO HS PRN 07/17/17 [History] Ergocalciferol (VITAMIN D2) [Vitamin D2] 50,000 unit PO QWEEK 07/17/17 [History] Fluticasone/Salmeterol [Advair 250-50 Diskus] 1 puff IH BID 07/17/17 [History] Furosemide [Lasix] 80 mg PO DAILY 07/17/17 [History] Melatonin 8 mg PO HS 07/17/17 [History] Varenicline Tartrate [Chantix Starting Month YAMILET] 1 tab PO DAILY 07/17/17 [ History] 3 Allergy/AdvReac Type Severity Reaction Status Date / Time No Known Allergies Allergy Verified 07/17/17 08:53 - Meds/Allergy Pre-op Review Medications Reviewed: Yes Allergies Reviewed: Yes Beta Blockers on Current Med List: No Anesthesia Results - Labs 07/17/17 10:31 07/17/17 02:20 Laboratory Results Impressions Chest X-Ray 07/16/17 19:07 IMPRESSION: No acute abnormality is identified. D/ / Pieter Eric MD / Pieter Eric MD Interpreting Provider: Pieter Eric MD Echocardiogram 07/17/17 04:31 Impressions: LVEF 65%. Indeterminate diastolic function. Normal right ventricular structure and function. Mild mitral regurgitation. Borderline pulmonary hypertension. Left Ventricular Wall Motion: Rest Echo Findings All wall segments showed normal motion. Findings: Study Quality * Technically adequate exam. ECG Findings * Normal sinus rhythm. Left Ventricle * LVEF 65%. * Normal LV chamber size, wall thickness and function. * Indeterminate diastolic function. Right Ventricle * Normal right ventricular structure and function. Left Atrium * Mildly dilated left atrium. Right Atrium * Normal right atrial size. Mitral Valve * Normal mitral valve structure. * No mitral stenosis. * Mild mitral annular calcification * Mild mitral regurgitation. Aortic Valve * No aortic regurgitation. * Aortic valve not well visualized. * No aortic stenosis. Tricuspid Valve * Tricuspid valve not well visualized. * Borderline pulmonary hypertension. * Estimated RA pressure is 8 mmHg. * Estimated RVSP is 35 mmHg. * Trace tricuspid regurgitation. Pulmonic Valve * Pulmonic valve is not well visualized. * No pulmonic stenosis. * No pulmonic regurgitation. Pulmonary Artery * Pulmonary artery not well visualized. Aorta * Normally sized aortic root. * Ascending aorta not optimally visualized. Pericardium * There is no pericardial effusion present. Interatrial Septum * No evidence of PFO by color Doppler. IVC * < 50% respiratory change. * The IVC is not dilated. Abdomen Ultrasound 07/17/17 08:24 IMPRESSION: 1. Cholelithiasis without biliary dilatation. 2. Small and nodular liver likely due to cirrhosis with sequela of portal hypertension with splenomegaly and ascites. D/ / Steven Hathaway MD / Steven Hathaway MD Interpreting Provider: Steven Hathaway MD Anesthesia Exam Vital Signs Temp Pulse Resp BP Pulse Ox 07/17/17 15:45 67 20 111/55 93 07/17/17 15:32 98.2 F 05/15/18 14:00 68 18 104/33 94 07/17/17 13:00 64 20 106/50 94 07/17/17 12:00 66 18 106/54 95 07/17/17 11:25 64 07/17/17 11:00 98.9 F 68 18 102/45 97 07/17/17 10:00 62 16 112/54 96 07/17/17 09:00 63 16 111/58 96 07/17/17 08:00 65 16 104/52 97 07/17/17 07:37 98.0 F 07/17/17 07:36 61 07/17/17 07:00 62 14 106/46 98 07/17/17 06:56 97.3 F L 61 14 86/48 98 07/17/17 06:45 97.3 F L 58 16 86/48 96 07/17/17 06:00 65 18 90/47 99 07/17/17 05:00 98.7 F 64 22 83/45 97 07/17/17 04:55 98.6 F 63 14 96/60 98 07/17/17 04:45 98.7 F 62 16 107/42 96 07/17/17 04:00 62 18 88/34 97 07/17/17 03:00 98.5 F 62 14 81/59 98 07/17/17 02:00 64 16 92/37 97 07/17/17 01:00 63 18 85/46 96 07/17/17 00:00 61 18 97/60 97 07/16/17 23:48 97.8 F 63 20 109/54 98 07/16/17 23:45 18 92/53 07/16/17 22:19 63 18 98/53 97 07/16/17 21:56 62 16 98/51 98 07/16/17 21:25 60 18 88/42 98 07/16/17 20:12 18 99 07/16/17 19:55 64 16 87/49 99 07/16/17 18:48 97.8 F 66 18 78/40 98 Intake and Output 07/16/17 07/17/17 07/17/17 23:59 07:59 15:59 Intake Total 384 / 384 600 / 600 Output Total 900 / 900 750 / 750 Balance -516 / -516 -150 / -150 Intake: IV Fluids 100 / 100 300 / 300 Protonix 40 MG In 0.9 % Sodium 100 / 100 100 / 100 Chloride (Mini-Bag +) 100 ML @ 20 mls/hr IVC .Q5H RAKESH Rx#: [id number] Flexbumin 25 gm In 100 ml @ 60 100 / 100 mls/hr IVPB Q8HR RAKESH Rx#: [id number] Zosyn 3.375 GM In 0.9 % Sodium 100 / 100 Chloride (Mini-Bag +) 100 ML @ 25 mls/hr IVPB Q8HR RAKESH Rx#: [id number] Oral 0 / 0 0 / 0 Blood Product 284 / 284 300 / 300 Rbcs Leuko Poor As-1 Unit 0 / 0 300 / 300 [id number] Rbcs Leuko Poor As-3 Ph Unit 284 / 284 [id number] Output: Urine 400 / 400 750 / 750 Emesis 500 / 500 Other: Weight 97.5 kg Blood Glucose* 167 147 Height: 5'11 Weight: 214# BMI = 30 NPO (# of Hours): MNOc - HEENT Pupil (Motor): Pupils equal, EOMI Teeth: Normal Oral Opening: Greater than 3 - CONSTRUCTION MGR LOC: Oriented CONSTRUCTION MGR Motor: Normal RUE, Normal LUE, Normal RLE, Normal LLE, Normal Face CONSTRUCTION MGR Sensory: Normal: RUE, LUE, RLE, LLE, Face - Cardiac Rhythm: Regular Murmur: None - Pulmonary Breath Sounds: bilateral Clear Respiratory Effort: Symmetrical Anesthesia Assess/Plan ASA Score: 4, E Modified [place] Scale for Level of Consciousness: Cooperative, oriented, and tranquil Anesthetic Plan: General Monitoring Plan: Standard Monitors Recovery Plan: ICU Anes Supervising Prov Stmt: Pt seen/evaluated, R&B discussed, question answered and consent obtained. Yefri Mckeon MD
[2017-07-17] MEDS ORDERED: *HR* Midazolam HCl 2 MG/2 ML VIAL ONE (15:53)
[2017-07-17] MEDS ORDERED: *HR* Propofol 200 MG/20 ML VIAL IVP ONE (15:53)
[2017-07-17] MEDS ORDERED: Propofol 500 MG/50 ML INFUS..BTL ONE (15:53)
[2017-07-17] MEDS ORDERED: Lidocaine -MPF 2% 2 ML VIAL ONE (15:53)
[2017-07-17] MEDS ORDERED: *HR* Etomidate 40 MG/20 ML VIAL IVP ONE (16:10)
[2017-07-17] MEDS ORDERED: Lidocaine -MPF 4% 5 ML AMPUL ONE (16:13)
[2017-07-17] MEDS ORDERED: Dexamethasone 4 MG/ML VIAL ONE (16:32)
[2017-07-17] MEDS ORDERED: Ondansetron 4 MG/2 ML VIAL ONE (16:32)
--- NOTE | 2017-07-17 16:35 | Electrocardiograph Report ---
[place] [address] Test Date: 2017-07-16 Pat Name: Tigre Hutchinson Department: 103 Room: 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
[2017-07-17 18:43] LABS: Hematocrit 21.1 % (37.5-50.1); Hemoglobin 7.5 g/dL (12.9-16.9)
[2017-07-17 19:04] LABS: BUN/Creatinine Ratio 48 (6-26); Blood Urea Nitrogen 61 mg/dL (6-20); Calcium 8.5 mg/dL (8.6-10.3); Carbon Dioxide 23 mEq/L (23-29); Chloride 95 mEq/L (98-107); Glucose 144 mg/dL (70-105); Osmolality,Calculated 276 (280-300); Potassium 5.4 mEq/L (3.5-5.1); Sodium 123 mEq/L (136-145); eGFR For African Americans > 60 (> 60); eGFR For Non-African Americans 58 (> 60)
[2017-07-17] MEDS ORDERED: Lactulose Oral Soln 20 GM/30 ML UDC PO SCH (21:00)
[2017-07-17 21:45] VITALS: BP 104/42
--- NOTE | 2017-07-19 17:40 | Discharge Summary ---
<Tabitha Hooperanie - Last Filed: 07/19/17 17:43> Orders not resulted at time of discharge: Pending orders 07/17/17 07:03 Culture,Blood [BC] Stat Date of Encounter: 07/17/17 Time of Encounter: 17:45 - Discharge Diagnosis (1) UGI bleed Priority: Primary Status: Acute (2) Ascites Priority: Secondary Status: Acute Qualifiers: Ascites type: due to alcoholic cirrhosis Qualified Code(s): K70.31 - Alcoholic cirrhosis of liver with ascites (3) Acute blood loss anemia Priority: Secondary Status: Acute (4) Hyponatremia Priority: Secondary Status: Acute (5) Hyperammonemia Priority: Secondary Status: Acute (6) Cirrhosis Priority: Secondary Status: Chronic Qualifiers: Hepatic cirrhosis type: alcoholic cirrhosis Ascites presence: with ascites Qualified Code(s): K70.31 - Alcoholic cirrhosis of liver with ascites (7) CAD (coronary artery disease) Priority: Secondary Status: Chronic Qualifiers: Coronary Disease-Associated Artery/Lesion type: [place] artery [place] vs. transplanted heart: [place] heart Associated angina: without angina Qualified Code(s): I25.10 - Atherosclerotic heart disease of [place] coronary artery without angina pectoris (8) DVT prophylaxis Priority: Secondary Status: Acute - Discharge Medications Home Medications: Ammonium Lactate 1 appl TP BID 07/17/17 [History] Aspirin [Lo-Dose Aspirin EC] 81 mg PO DAILY 07/17/17 [History] Calcium Carbonate [Calcium] 500 mg PO DAILY 07/17/17 [History] Carvedilol 3.125 mg PO BID 07/17/17 [History] Clopidogrel [Plavix] 75 mg PO DAILY 07/17/17 [History] DiphenhydraMINE [Benadryl] 50 mg PO HS PRN 07/17/17 [History] Ergocalciferol (VITAMIN D2) [Vitamin D2] 50,000 unit PO QWEEK 07/17/17 [History] Fluticasone/Salmeterol [Advair 250-50 Diskus] 1 puff IH BID 07/17/17 [History] Furosemide [Lasix] 80 mg PO DAILY 07/17/17 [History] Melatonin 8 mg PO HS 07/17/17 [History] Varenicline Tartrate [Chantix Starting Month YAMILET] 1 tab PO DAILY 07/17/17 [ History] Allergies/Adverse Reactions: 3 Allergy/AdvReac Type Severity Reaction Status Date / Time No Known Allergies Allergy Verified 07/17/17 08:53 Procedures and tests throughout hospitalization: Endoscopy showed 2 grade 3 varices with 1 bleeding. They were both banded. Labs on day of discharge: Preliminary micro results at discharge 07/17/17 06:58 Blood Culture - Preliminary Peripheral Venipuncture No growth. - Impressions ITS Impressions Echocardiogram 07/17/17 04:31 Impressions: LVEF 65%. Indeterminate diastolic function. Normal right ventricular structure and function. Mild mitral regurgitation. Borderline pulmonary hypertension. Left Ventricular Wall Motion: Rest Echo Findings All wall segments showed normal motion. Findings: Study Quality * Technically adequate exam. ECG Findings * Normal sinus rhythm. Left Ventricle * LVEF 65%. * Normal LV chamber size, wall thickness and function. * Indeterminate diastolic function. Right Ventricle * Normal right ventricular structure and function. Left Atrium * Mildly dilated left atrium. Right Atrium * Normal right atrial size. Mitral Valve * Normal mitral valve structure. * No mitral stenosis. * Mild mitral annular calcification * Mild mitral regurgitation. Aortic Valve * No aortic regurgitation. * Aortic valve not well visualized. * No aortic stenosis. Tricuspid Valve * Tricuspid valve not well visualized. * Borderline pulmonary hypertension. * Estimated RA pressure is 8 mmHg. * Estimated RVSP is 35 mmHg. * Trace tricuspid regurgitation. Pulmonic Valve * Pulmonic valve is not well visualized. * No pulmonic stenosis. * No pulmonic regurgitation. Pulmonary Artery * Pulmonary artery not well visualized. Aorta * Normally sized aortic root. * Ascending aorta not optimally visualized. Pericardium * There is no pericardial effusion present. Interatrial Septum * No evidence of PFO by color Doppler. IVC * < 50% respiratory change. * The IVC is not dilated. Abdomen Ultrasound 07/17/17 08:24 IMPRESSION: 1. Cholelithiasis without biliary dilatation. 2. Small and nodular liver likely due to cirrhosis with sequela of portal hypertension with splenomegaly and ascites. D/ / Stveen Hathaway MD / Steven Hathaway MD Interpreting Provider: Steven Hathaway MD Date of admission: 07/16/17 23:12 Primary care physician: Pauline Hamilton Consults: 07/17/17 01:14 Consult to Gastroenterology [CONS] Routine Consulting Provider: Gastroenterology Rosy Reason for Consult: UGI bleed; cirrhosis Call Completed: Yes Consult to Pulmonology [CONS] Routine Consulting Provider: Pulm Crit Care & Sleep Rosy Reason for Consult: UGI bleed; hyonatremia; ICU management Call Completed: No 07/17/17 09:39 Consult to Invasive Line Access Team [CONS] Routine Reason for Consult: EPIV X 2 PLEASE Line Type: EPIV Discharging clinician: Lai Brody Anticipated date of discharge: 07/17/17 - Patient Status Disposition: Transfer Short-Term Hosp Condition: Fair Functional capacity at discharge: independent ambulation Overall status at discharge: patient is not back to baseline - Discharge Instructions Follow Up With: Pauline Hamilton [Primary Care Provider] - Additional Instructions: follow up with PCP and bonding machine setter - Diet and Activity Activity: resume usual activities as tolerated Diet: advance to your usual diet - Hospital Course Hospital course: Mr. Hucthinson is a 57 year old male with a past medical history of liver cirrhosis secondary to alcoholism, CAD who presented to [facility] complaining of weakness, coffee ground emesis when vomiting. He was admitted for hyponatremia , hyperkalemia, concerns of upper G.I. bleed. Hemoglobin decreased from 7.8 to 6.4. He was given 2 units of packed red blood cells and fresh frozen plasma. The patient has a history of CAD with angioplasty and stents placed in coronary arteries 3 weeks ago at [facility], and he is currently on DAPT therapy. He was also on the liver transplant list at [facility]. His gastroenterologists is located in [place] where he also gets paracentesis 2 times a week. The patient reported that ever since he had stents placed 3 weeks ago he has become increasingly weaker, and yesterday when he came in earlier that morning he had paracentesis performed. That evening he felt very weak and unable to stand. He reported having melena 2 times recently. As his drove him to the hospital and he vomited one time in the car and then again as he was being transferred from the ER to the ICU. He had large coffee- ground emesis. Upon his admission the hospitalist had recommended and encouraged the patient to be transferred to a tertiary hospital since at that time there was no bonding machine setter for coverage. However, he and his were adamant about staying at [place] despite the high risk of bleeding and from varices. In addition to PRBC he was given Cipro, Flagyl, albumin, IV Protonix, Lasix, radha- cortef. In the ICU he received 2 PRBC and 1 FFP ordered. Hemoglobin once repeated 7.9 (6.4). EPIV was obtained. STAT abdominal u/s was ordered. He was continued octreotide drip, IV Protonix drip, IV Zofran scheduled, q6H H&H, NPO. He was also started on zosyn due to concern for SBP. GI was consulted and performed endoscopy which revealed 2 grade 3 varices with one of them bleeding. They were both banded. The bonding machine setter recommended that the patient be transferred to a tertiary hospital that had a financial services director also out of concerns that if the patient were to have a massive bleed [place] did not have the support to be able to manage him safely. The patient and his were informed of concerns and risks and were agreeable to want to be transferred to [facility]. They specifically said they did not want to go to [facility]. The call was made to [facility] center transfer center who accepted the transfer. - Time Spent with Patient Total time spent providing and/or coordinating discharge services: Greater than 30 minutes Physical Examination General appearance: no acute distress Eyes: nonicteric ENT: oropharynx moist Neck: supple Effort: normal Inspection: normal Auscultation: bilateral: clear Cardiovascular: regular rate and rhythm Gastrointestinal: normoactive bowel sounds, soft, non-tender, other (distended with fluid wave) Integumentary: normal Extremities: no cyanosis, edema (+1 edema) Musculoskeletal: no deformities normal mental status, non-focal exam mood appropriate, affect normal - Stroke Contraindication Rehab Services Not Assessed: Refused by Patient / Family <Lai Brody - Last Filed: 07/20/17 14:24> Orders not resulted at time of discharge: Pending orders 07/17/17 07:03 Culture,Blood [BC] Stat Date of Encounter: 07/20/17 Labs on day of discharge: Preliminary micro results at discharge 07/17/17 06:58 Blood Culture - Preliminary Peripheral Venipuncture No growth. - Impressions ITS Impressions Echocardiogram 07/17/17 04:31 Impressions: LVEF 65%. Indeterminate diastolic function. Normal right ventricular structure and function. Mild mitral regurgitation. Borderline pulmonary hypertension. Left Ventricular Wall Motion: Rest Echo Findings All wall segments showed normal motion. Findings: Study Quality * Technically adequate exam. ECG Findings * Normal sinus rhythm. Left Ventricle * LVEF 65%. * Normal LV chamber size, wall thickness and function. * Indeterminate diastolic function. Right Ventricle * Normal right ventricular structure and function. Left Atrium * Mildly dilated left atrium. Right Atrium * Normal right atrial size. Mitral Valve * Normal mitral valve structure. * No mitral stenosis. * Mild mitral annular calcification * Mild mitral regurgitation. Aortic Valve * No aortic regurgitation. * Aortic valve not well visualized. * No aortic stenosis. Tricuspid Valve * Tricuspid valve not well visualized. * Borderline pulmonary hypertension. * Estimated RA pressure is 8 mmHg. * Estimated RVSP is 35 mmHg. * Trace tricuspid regurgitation. Pulmonic Valve * Pulmonic valve is not well visualized. * No pulmonic stenosis. * No pulmonic regurgitation. Pulmonary Artery * Pulmonary artery not well visualized. Aorta * Normally sized aortic root. * Ascending aorta not optimally visualized. Pericardium * There is no pericardial effusion present. Interatrial Septum * No evidence of PFO by color Doppler. IVC * < 50% respiratory change. * The IVC is not dilated. Abdomen Ultrasound 07/17/17 08:24 IMPRESSION: 1. Cholelithiasis without biliary dilatation. 2. Small and nodular liver likely due to cirrhosis with sequela of portal hypertension with splenomegaly and ascites. D/ / Steven Hathaway MD / Steven Hathaway MD Interpreting Provider: Steven Hathaway MD Date of admission: 07/16/17 23:12 Primary care physician: Pauline Hamilton Consults: 07/17/17 01:14 Consult to Gastroenterology [CONS] Routine Consulting Provider: Gastroenterology Rosy Reason for Consult: UGI bleed; cirrhosis Call Completed: Yes Consult to Pulmonology [CONS] Routine Consulting Provider: Pulm Crit Care & Sleep Rosy Reason for Consult: UGI bleed; hyonatremia; ICU management Call Completed: No 07/17/17 09:39 Consult to Invasive Line Access Team [CONS] Routine Reason for Consult: EPIV X 2 PLEASE Line Type: EPIV - Hospital Course Hospital course: Mr. Hutchinson is a 57 year old male - Time Spent with Patient Total time spent providing and/or coordinating discharge services: - Attending Attestation I examined this patient and my medical decision-making was reviewed with the Resident Physician. I agree with the documented findings, disposition and treatment plan as described except to the extent set forth below. We independently had [id number] contact with the patient Per patient's preference and as indicated by complex underlying liver disease he was transferred in stable condition to a tertiary referral center for ongoing care
== END 2017-07-17 22:18 | disposition short-term general hospital (02) | DRG 378 ==
LOC: EMEROO 18:45 → ICNU 23:12
PROVIDERS: ADMIT Pediatrics; ATTEND Internal Medicine

== ENCOUNTER 2017-09-07 05:59 | Inpatient (IN) ==
[2017-09-07] MEDS ORDERED: *HR* Propofol 200 MG/20 ML VIAL IVP ONE (09:20)
--- NOTE | 2017-09-07 09:33 | Anesthesia Evaluation PreOp ---
Date of Encounter: 09/07/17 Time of Encounter: 09:31 - Past History Planned Operation: EGD Cardiac History: Cardiac Stent (stents x 2 on 06/22/2017) Pulmonary History: Smoker (40 years), Asthma POST GRADUATE INTERN History: Denies Any Significant HX Other Medical History: Hepatic (cirrhosis), Renal, GERD, Other (esophageal varices with H/O variceal bleed) Anesthesia History: No Prior Anesthetic Complications, Past Anesthesia (EGD) Alcohol Use: none (FORMER heavy drinker, quit 08/2016) Drug use: none Medications and Allergies Ammonium Lactate 1 appl TP BID 07/17/17 [History] Aspirin [Lo-Dose Aspirin EC] 81 mg PO DAILY 07/17/17 [History] Calcium Carbonate [Calcium] 500 mg PO DAILY 07/17/17 [History] Carvedilol 3.125 mg PO BID 07/17/17 [History] Clopidogrel [Plavix] 75 mg PO DAILY 07/17/17 [History] DiphenhydraMINE [Benadryl] 50 mg PO HS PRN 07/17/17 [History] Ergocalciferol (VITAMIN D2) [Vitamin D2] 50,000 unit PO QWEEK 07/17/17 [History] Fluticasone/Salmeterol [Advair 250-50 Diskus] 1 puff IH BID 07/17/17 [History] Furosemide [Lasix] 80 mg PO DAILY 07/17/17 [History] Melatonin 8 mg PO HS 07/17/17 [History] Varenicline Tartrate [Chantix Starting Month YAMILET] 1 tab PO DAILY 07/17/17 [ History] 3 Allergy/AdvReac Type Severity Reaction Status Date / Time No Known Allergies Allergy Verified 07/17/17 08:53 - Meds/Allergy Pre-op Review Medications Reviewed: Yes Allergies Reviewed: Yes Beta Blockers on Current Med List: Yes If Beta Blockers taken, Date/Time (Last Dose taken): 09/06/2017 at 2000 Anesthesia Results - Labs 09/07/2017 at 0307 WBC 9.7 HGB 6.7 HCT 18.8 PLT 177 Na 122 K 5.3 BUN 65 Cr 1.4 Laboratory Tests 07/17/17 07/17/17 07/17/17 02:20 02:20 18:27 WBC 7.5 Hgb 7.5 L Hct 21.1 L Plt Count 117 L PT 15.6 H INR 1.4 APTT 28.7 Sodium Potassium BUN Creatinine 07/17/17 18:27 WBC Hgb Hct Plt Count PT INR APTT Sodium 123 L Potassium 5.4 H BUN 61 H Creatinine 1.28 - Imaging EKG: report reviewed (07/16/2017 SINUS RHYTHM WITH OCCASIONAL SUPRAVENTRICULAR PREMATURE COMPLEXES) Additional studies: 07/17/2017 Echo Impressions: LVEF 65%. Indeterminate diastolic function. Normal right ventricular structure and function. Mild mitral regurgitation. Borderline pulmonary hypertension. Anesthesia Exam 3 Vital Signs 1000 Temp 98 BP 115/55 Pulse 63 Resp 18 O2 Sat 94% Vital Signs/O2 Sat, Most Current Temp Pulse Resp BP Pulse Ox 98.0 F 61 18 115/55 93 09/07/17 09:47 09/07/17 09:47 09/07/17 09:47 09/07/17 09:47 09/07/17 09:47 Height: 5'11'' Weight: 193 lbs NPO (# of Hours): 8 Pain Scale: 0 Pain Scale Used: Numeric (1 - 10) - HEENT Pupil (Motor): EOMI Mallampati: II Teeth: Normal Oral Opening: Greater than 3 - POST GRADUATE INTERN LOC: Oriented POST GRADUATE INTERN Motor: Normal RUE, Normal LUE, Normal Face, Deficit RLE, Deficit LLE POST GRADUATE INTERN Sensory: Normal: RUE, LUE, RLE, LLE, Face - Cardiac Rhythm: Regular Murmur: None - Pulmonary Breath Sounds: bilateral Clear Respiratory Effort: Symmetrical Anesthesia Assess/Plan ASA Score: 4, E Modified [place] Scale for Level of Consciousness: Cooperative, oriented, and tranquil Anesthetic Plan: General, MAC Monitoring Plan: Standard Monitors Recovery Plan: PACU
[2017-09-07] MEDS ORDERED: Octreotide 50 MCG/ML SYRINGE IVP ONE (10:55)
[2017-09-07] MEDS ORDERED: 0.9 % Sodium Chloride 1,000 ML IVC SCH (11:00)
[2017-09-07] MEDS: Octreotide 400 MCG in 0.9 % Sodium Chloride 100 ML IVC SCH (12:02)
[2017-09-07 12:03] LABS: Hemoglobin 7.8 g/dL (12.9-16.9)
[2017-09-07] MEDS ORDERED: Naloxone 0.4 MG/ML INJ IVP PRN (14:57)
[2017-09-07] MEDS: cefTRIAXone 2,000 MG in Water for inj. (sterile) 20 ML 20 ML IVP SCH (15:17)
[2017-09-07] MEDS: Albumin 25% 25gram/100mL 25 GM/100 ML IV.SOLN IVC SCH ×4 (15:18→21:41)
--- NOTE | 2017-09-07 15:29 | Pulmonology History & Physical ---
Date of Encounter: 09/07/17 Time of Encounter: 15:23 Assessment and Plan (1) Esophageal varix bleeding Current visit: Yes Status: Acute Status post banding. Monitor overnight ICU Nothing by mouth for now Currently hemodynamically stable Appreciate GI assessment and recommendations Ceftriaxone 2 g given Continue infusion of octreotide Volume expansion with albumin Could likely introduce beta gely over the next 24 hours Appreciate GI recommendations/intervention Qualifiers: Esophageal varices type: unspecified type Qualified Code(s): I85.01 - Esophageal varices with bleeding (2) Acute blood loss anemia Current visit: No Status: Acute Transfusion goal be greater than 7. Unless there is clear evidence of cardiac ischemia (3) Ascites Current visit: No Status: Acute History of ascites secondary to portal hypertension. Abdomen appears soft at this time we will consider diagnostic the paracentesis if ultrasound confirms safe pocket of fluid to aspirate for concern of possibility of spontaneous bacterial peritonitis. Regardless patient is being covered with appropriate antimicrobials Qualifiers: Ascites type: due to alcoholic cirrhosis Qualified Code(s): K70.31 - Alcoholic cirrhosis of liver with ascites (4) Hyperammonemia Current visit: No Status: Acute (5) Hyponatremia Current visit: No Status: Acute This is chronic but appears slightly lower than baseline I suspect there is a component of acute volume depletion complicated by chronic hypervolemic hyponatremia. I suspect that in the acute phase volume expansion will improve this (6) CAD (coronary artery disease) Current visit: No Status: Chronic Recent stent placement will check troponin and ECG BNP was normal at outside facility patient is not complaining any chest pain at this time Qualifiers: Coronary Disease-Associated Artery/Lesion type: [place] artery [place] vs. transplanted heart: [place] heart Associated angina: without angina Qualified Code(s): I25.10 - Atherosclerotic heart disease of [place] coronary artery without angina pectoris (7) Cirrhosis Current visit: No Status: Chronic LFTs at outside hospital and not consistent with markedly decompensated cirrhosis. Repeat LFTs here pending. GI following. Patient is currently not transplant candidate because of coronary artery disease. May be candidate for TIPS down the road given recurrent ascites We will resume lactulose/rifaximin once patient taking by mouth We will start PPI for portal hypertensive gastropathy Qualifiers: Hepatic cirrhosis type: alcoholic cirrhosis Ascites presence: with ascites Qualified Code(s): K70.31 - Alcoholic cirrhosis of liver with ascites (8) DVT prophylaxis Current visit: No Status: Acute MEchanical SCDSs History of Present Illness Chief complaint: Dizziness HPI: Mr. Hutchinson is a 57 year old male his past medical history of EtOH cirrhosis with alcohol abuse in remission complicated by recurrent ascites. He also has a history of coronary artery disease status post recent PCI within the last 3 months. He presented to the outside hospital last night complaining of dizziness and shortness of breath after standing along with having vomited up blood 24 hours prior and generally feeling unwell. He denied any chest pain fever chills or abdominal pain. Last paracentesis for ascites was done yesterday per the patient. He initially presented to [facility] blood pressures outside hospital was 110/52 he was not tachycardic oxygen saturation was 100% on room air in reviewing the outside hospital records the WBC there was 9.7/6.7/18.8/177. BNP was normal at 37 blood cultures were obtained CMP was notable for 122/55/92/22/65/1.4/124. Albumin 1.9 total protein 5.8 total bili 0.863 alkaline phosphatase 86 AST 32 ALT 32. Patient requested transfer to [facility] were used initially accepted by the hospitalist service he was started on Protonix drip and transfusion of 2 units was undertaken he was and transferred to [facility] where he was initially triaged to the med telemetry floor where he was taken from there to endoscopy suite and underwent esophageal banding for a bleeding varix When I spoke with patient today he states that he is "feeling much better" his only complaint is that he is thirsty and hungry wants to eat and drink. Denies fevers or chills cough at this time. Also denies any abdominal pain Past medical history is notable for coronary disease and cirrhosis. He continues to smoke about one half pack a day. He has a daily cough with productive sputum. No recent alcohol use he stopped drinking one year ago before that drank about a pint of vodka daily. He does have history of chronic anemia and thrombocytopenia associated with his cirrhosis Past Med Surg Social Fam HX - Past Medical History Medical history: asthma, GERD Additional medical history: cirrhosis, Psychiatric history: no psych history - Past Surgical History Surgical History: angioplasty/stent Additional surgical history: Heart stent (06/22/17) @ [facility]. Tapped by IR @ [place] twice weekly. - Social History Smoking Status: Current some day smoker Smokeless Tobacco Status: No Alcohol use: none (FORMER heavy drinker, quit 08/2016) Drug use: none - Family History Mother Living Status: Medications and Allergies Ammonium Lactate 1 appl TP BID 07/17/17 [History] Aspirin [Lo-Dose Aspirin EC] 81 mg PO DAILY 07/17/17 [History] Calcium Carbonate [Calcium] 500 mg PO DAILY 07/17/17 [History] Carvedilol 3.125 mg PO BID 07/17/17 [History] Clopidogrel [Plavix] 75 mg PO DAILY 07/17/17 [History] DiphenhydraMINE [Benadryl] 50 mg PO HS PRN 07/17/17 [History] Ergocalciferol (VITAMIN D2) [Vitamin D2] 50,000 unit PO QWEEK 07/17/17 [History] Fluticasone/Salmeterol [Advair 250-50 Diskus] 1 puff IH BID 07/17/17 [History] Furosemide [Lasix] 80 mg PO DAILY 07/17/17 [History] Melatonin 8 mg PO HS 07/17/17 [History] 3 Allergy/AdvReac Type Severity Reaction Status Date / Time No Known Allergies Allergy Verified 07/17/17 08:53 All Systems: The remainder of the systems were reviewed and are negative Physical Examination Vital Signs: Vital Signs, Last 4 Hours Temp Pulse Resp BP Pulse Ox 09/07/17 14:00 70 20 114/68 98 09/07/17 13:00 61 20 105/67 94 09/07/17 12:00 59 18 115/58 96 09/07/17 11:30 97.9 F 61 18 105/65 98 General appearance: no acute distress Eyes: other (Mild scleral icterus noted) ENT: oropharynx dry Neck: supple, no lymphadenopathy, no JVD Effort: normal Auscultation: bilateral: rales (Faint rales at lung bases) Cardiovascular: regular rate and rhythm Gastrointestinal: normoactive bowel sounds, soft, non-tender, other ( Nondistended no fluid wave form) Integumentary: normal Extremities: no edema Musculoskeletal: no deformities normal mental status, non-focal exam mood appropriate Results - Laboratory Findings CBC and BMP: 09/07/17 11:48 Abnormal lab findings: Abnormal lab results Hgb 7.8 g/dL (12.9-16.9) L 09/07/17 11:48 Hct 22.0 % (37.5-50.1) L 09/07/17 11:48 POC Glucose 109 mg/dL (70-99) H 09/07/17 11:06
[2017-09-07 16:07] LABS: Basophils % 0.4 %; Eosinophils # 0.2 K/mcL (0.0-0.6); Eosinophils % 1.9 %; Hematocrit 21.5 % (37.5-50.1); Hemoglobin 7.4 g/dL (12.9-16.9); Immature Granulocytes % 0.8 % (0-4); Lymphocytes # 1.3 K/mcL (0.6-4.6); Lymphocytes % 13.5 %; Mean Corpuscular HGB Conc 34.4 g/dL (31.6-35.5); Mean Corpuscular Hemoglobin 30.1 pg (28.0-33.3); Mean Corpuscular Volume 87.4 fL (83.0-100.0); Mean Platelet Volume 9.7 fL (9.4-12.4); Monocytes # 0.9 K/mcL (0.0-1.3); Monocytes % 9.6 %; Neutrophils # 6.9 K/mcL (1.6-8.9); Platelet Count 134 K/mcL (140-400); Red Blood Count 2.46 M/mcL (4.19-5.50); Red Cell Distribution Width 15.9 % (11.5-14.5); Segmented Neutrophils % 73.8 %
[2017-09-07 16:18] LABS: INR 1.2; Prothrombin Time 13.2 Seconds (9.4-12.1)
[2017-09-07 16:25] LABS: Alanine Aminotransferase 21 Units/L (7-52); Albumin 2.4 g/dL (3.5-5.7); Albumin/Globulin Ratio 0.8 (1.1-2.2); Alkaline Phosphatase 68 Units/L (34-104); Aspartate Amino Transferase 28 Units/L (13-39); BUN/Creatinine Ratio 48 (6-26); Bilirubin,Total 1.8 mg/dL (0.3-1.0); Blood Urea Nitrogen 58 mg/dL (6-20); Calcium 8.2 mg/dL (8.6-10.3); Carbon Dioxide 21 mEq/L (23-29); Chloride 96 mEq/L (98-107); Glucose 97 mg/dL (70-105); Osmolality,Calculated 270 (280-300); Potassium 5.7 mEq/L (3.5-5.1); Sodium 122 mEq/L (136-145); Total Protein 5.4 g/dL (6.4-8.9); eGFR For African Americans > 60 (> 60); eGFR For Non-African Americans > 60 (> 60)
[2017-09-07] MEDS: Pantoprazole 40 MG VIAL IVP SCH (17:27)
[2017-09-07] MEDS ORDERED: Insulin Human Regular 10 UNIT in 0.9 % Sodium Chloride 10 ML IV ONE (17:50)
[2017-09-07] MEDS ORDERED: *HR* Dextrose 50 % in Water (Syg) 50 ML SYRINGE IVP ONE (17:51)
[2017-09-07 18:54] LABS: Bilirubin,Urine Negative (Negative); Blood,Urine Negative (Negative); Clarity,Urine Clear (Clear); Color,Urine Yellow (Yellow); Glucose,Urine (UA) Normal (Normal); Ketones,Urine Negative (Negative); Leukocyte Esterase,Urine Negative (Negative); Nitrite,Urine Negative (Negative); Protein,Urine Negative (Neg-Trace); Specific Gravity,Urine 1.018 (1.010-1.025); Urobilinogen,Urine Normal (Normal)
[2017-09-08 00:59] LABS: Basophils % 0.4 %; Eosinophils # 0.2 K/mcL (0.0-0.6); Eosinophils % 2.9 %; Hematocrit 15.6 % (37.5-50.1); Immature Granulocytes % 0.4 % (0-4); Lymphocytes # 0.8 K/mcL (0.6-4.6); Lymphocytes % 15.9 %; Mean Corpuscular HGB Conc 35.3 g/dL (31.6-35.5); Mean Corpuscular Hemoglobin 30.7 pg (28.0-33.3); Mean Corpuscular Volume 87.2 fL (83.0-100.0); Mean Platelet Volume 9.7 fL (9.4-12.4); Monocytes # 0.6 K/mcL (0.0-1.3); Monocytes % 11.5 %; Neutrophils # 3.5 K/mcL (1.6-8.9); Red Blood Count 1.79 M/mcL (4.19-5.50); Red Cell Distribution Width 15.9 % (11.5-14.5); Segmented Neutrophils % 68.9 %
[2017-09-08 01:00] LABS: Platelet Count 76 K/mcL (140-400)
[2017-09-08 01:01] LABS: Hemoglobin 5.5 g/dL (12.9-16.9)
[2017-09-08 01:22] LABS: BUN/Creatinine Ratio 42 (6-26); Blood Urea Nitrogen 57 mg/dL (6-20); Calcium 8.7 mg/dL (8.6-10.3); Carbon Dioxide 20 mEq/L (23-29); Chloride 97 mEq/L (98-107); Glucose 81 mg/dL (70-105); Osmolality,Calculated 271 (280-300); Potassium 5.1 mEq/L (3.5-5.1); Sodium 123 mEq/L (136-145); eGFR For African Americans > 60 (> 60); eGFR For Non-African Americans 54 (> 60)
[2017-09-08] MEDS: Octreotide 400 MCG in 0.9 % Sodium Chloride 100 ML IVC SCH ×2 (02:11→20:15)
[2017-09-08] MEDS ORDERED: 0.9 % Sodium Chloride 500 ML ONE (02:19)
[2017-09-08 04:53] LABS: BUN/Creatinine Ratio 38 (6-26); Blood Urea Nitrogen 53 mg/dL (6-20); Calcium 8.6 mg/dL (8.6-10.3); Carbon Dioxide 21 mEq/L (23-29); Chloride 98 mEq/L (98-107); Glucose 88 mg/dL (70-105); Osmolality,Calculated 272 (280-300); Potassium 5.6 mEq/L (3.5-5.1); Sodium 124 mEq/L (136-145); eGFR For African Americans > 60 (> 60); eGFR For Non-African Americans 53 (> 60)
[2017-09-08] MEDS ORDERED: Insulin Human Regular 10 UNIT in 0.9 % Sodium Chloride 10 ML IV ONE (06:05)
[2017-09-08] MEDS ORDERED: *HR* Dextrose 50 % in Water (Syg) 50 ML SYRINGE IVP ONE (06:07)
--- NOTE | 2017-09-08 08:39 | Pulmonology Progress Note ---
<Lai Brody W - Last Filed: 09/08/17 09:44> Date of Encounter: 09/08/17 Assessment and Plan (1) Esophageal varix bleeding Current Visit: Yes Status: Acute Qualifiers: Esophageal varices type: unspecified type Qualified Code(s): I85.01 - Esophageal varices with bleeding (2) Acute blood loss anemia Current Visit: No Status: Acute (3) Ascites Current Visit: No Status: Acute Qualifiers: Ascites type: due to alcoholic cirrhosis Qualified Code(s): K70.31 - Alcoholic cirrhosis of liver with ascites (4) Hyperammonemia Current Visit: No Status: Acute (5) Hyponatremia Current Visit: No Status: Acute (6) CAD (coronary artery disease) Current Visit: No Status: Chronic Qualifiers: Coronary Disease-Associated Artery/Lesion type: [place] artery [place] vs. transplanted heart: [place] heart Associated angina: without angina Qualified Code(s): I25.10 - Atherosclerotic heart disease of [place] coronary artery without angina pectoris (7) Cirrhosis Current Visit: No Status: Chronic Qualifiers: Hepatic cirrhosis type: alcoholic cirrhosis Ascites presence: with ascites Qualified Code(s): K70.31 - Alcoholic cirrhosis of liver with ascites (8) DVT prophylaxis Current Visit: No Status: Acute Objective PUL Vital signs: Last Vital Signs Temp 97.7 F 09/08/17 07:30 Pulse 54 09/08/17 09:00 Resp 20 09/08/17 09:00 BP 100/48 09/08/17 09:00 Pulse Ox 100 09/08/17 09:00 Results - Laboratory Findings CBC and BMP: 09/08/17 09:18 09/08/17 04:14 PT/INR, D-dimer PT 13.2 Seconds (9.4-12.1) H 09/07/17 15:38 Abnormal lab findings: Abnormal lab results RBC 2.74 M/mcL (4.19-5.50) L 09/08/17 09:18 Hgb 8.2 g/dL (12.9-16.9) L D 09/08/17 09:18 Hct 24.3 % (37.5-50.1) L 09/08/17 09:18 RDW 15.9 % (11.5-14.5) H 09/08/17 09:18 Plt Count 95 K/mcL (140-400) L 09/08/17 09:18 PT 13.2 Seconds (9.4-12.1) H 09/07/17 15:38 Sodium 124 mEq/L (136-145) L 09/08/17 04:14 Potassium 5.6 mEq/L (3.5-5.1) H 09/08/17 04:14 Carbon Dioxide 21 mEq/L (23-29) L 09/08/17 04:14 BUN 53 mg/dL (6-20) H 09/08/17 04:14 Creatinine 1.38 mg/dL (0.70-1.30) H 09/08/17 04:14 Est GFR (Non-Af Amer) 53 (> 60) L 09/08/17 04:14 BUN/Creatinine Ratio 38 (6-26) H 09/08/17 04:14 POC Glucose 109 mg/dL (70-99) H 09/07/17 11:06 Calculated Osmolality 272 (280-300) L 09/08/17 04:14 Total Bilirubin 1.8 mg/dL (0.3-1.0) H 09/07/17 15:38 Serum Total Protein 5.4 g/dL (6.4-8.9) L 09/07/17 15:38 Albumin 2.4 g/dL (3.5-5.7) L 09/07/17 15:38 Albumin/Globulin Ratio 0.8 (1.1-2.2) L 09/07/17 15:38 - Microbiology Findings Microbiology Findings: Microbiology, Last 48 Hours 09/07/17 15:38 Blood Culture - Preliminary Peripheral Venipuncture Culture is incubating and being continuously monitored for growth. Final report to follow. 09/07/17 15:38 Blood Culture - Preliminary Peripheral Venipuncture Culture is incubating and being continuously monitored for growth. Final report to follow. 09/07/17 15:38 Blood Culture - Preliminary Peripheral Venipuncture Culture is incubating and being continuously monitored for growth. Final report to follow. - Clinical Findings Intake & Output: Intake & Output 09/07/17 09/08/17 09/08/17 23:59 07:59 15:59 Intake Total 534 / 534 660.1 / 660.1 Output Total 300 / 300 650 / 650 Balance 234 / 234 10.1 / 10.1 Weight 88.2 kg Consult Discharge Plan - Plan Referrals: Pauline Hamilton [Primary Care Provider] - - Attending Attestation I examined this patient and my medical decision-making was reviewed with the Resident Physician. I agree with the documented findings, disposition and treatment plan as described except to the extent set forth below. We independently had [id number] contact with the patient Patient seen and examined at bedside Labs, radiology, chart personally reviewed. Management was reviewed during multidisciplinary critical care rounds. BEDSPREAD CUTTER: The patient is fully awake alert no evidence of encephalopathy Pulm: He has underlying COPD we will restart his combination MDI otherwise excellent oxygenation on room air tobacco abuse cessation counseling given Cards: Borderline hypotensive overnight. This is likely secondary to anemia and volume depletion. Will repeat dose with albumin today GI: Cirrhosis with variceal bleeding status post banding continue octreotide today. GI prophylaxis given. GI following Nutrition: Nothing by mouth for now status post variceal banding Renal: Mild hyperkalemia treating medically UOP Monitored, Cont to Trend sCr and monitor Electrolytes. ID: Ceftriaxone given for upper GI bleed Heme/Onc: Mechanical DVT prophylaxis he is acute blood loss anemia secondary to variceal bleeding blood counts overnight were less than 7 his been given transfusion 2 units PRBCs repeat H&H pending Endo: Glucose Monitored Integ/MSK: Skin Care per routine ICU Nursing Protocol to prevent ulcers. Lines: All lines examined without evidence of infection : Dispo: monitor overnight in ICU CODE: Full <Kali White - Last Filed: 09/08/17 10:00> Date of Encounter: 09/08/17 Time of Encounter: 08:39 Assessment and Plan (1) Esophageal varix bleeding Current Visit: Yes Status: Acute Status post banding. Patient is still nothing by mouth. Currently hemodynamically stable but did have an episode of hypotension last night. Patient did not need any vasopressors at that time. Patient has gotten 2 units of blood so far. Patient did have stable hemoglobin of 7.8 when he was initially admitted here. Since then his hemoglobin has dropped to 5.5. This is done last night at midnight. We will repeat that this morning if still below 7 we will transfuse with more packed red blood cells. Given 2 g ceftriaxone. Continuation of octreotide Patient did get albumin yesterday we will repeat was 5% albumin today. Consider starting beta gely tomorrow. We appreciate GI's recommendations during this consultation Qualifiers: Esophageal varices type: unspecified type Qualified Code(s): I85.01 - Esophageal varices with bleeding (2) Acute blood loss anemia Current Visit: No Status: Acute Transfuse if hemoglobin less than 7. (3) Ascites Current Visit: No Status: Acute History of ascites secondary to portal hypertension. There is no acute abdomen signs at this time. In case this is spontaneous by 0 peritonitis patient is being covered with antibiotics. We will consider diagnostic paracentesis if it well enough pocket of fluid is found to aspirate. Qualifiers: Ascites type: due to alcoholic cirrhosis Qualified Code(s): K70.31 - Alcoholic cirrhosis of liver with ascites (4) Cirrhosis Current Visit: No Status: Chronic LFTs outside hospital did not show markedly, decompensated cirrhosis. Patient' s repeat LFTs showed AST 28, ALT 21 alkaline phosphatase 68. GI is following. Patient is currently not transfer the patient because of he is him having coronary artery disease may be candidate for T IPS down the road if he does have recurrent ascites. We will resume lactulose once patient is taking by mouth. We will start PPI for portal hypertensive gastropathy Qualifiers: Hepatic cirrhosis type: alcoholic cirrhosis Ascites presence: with ascites Qualified Code(s): K70.31 - Alcoholic cirrhosis of liver with ascites (5) Asthma Current Visit: Yes Status: Acute Patient does have history of asthma says he does have inhalers at home but does not use them often. We will give him Symbicort and every 6 hours duo nebs. Continue to monitor. Patient does not seem to be an exacerbation at this time Qualifiers: Asthma severity: mild Asthma persistence: intermittent Asthma complication type: unspecified Qualified Code(s): J45.20 - Mild intermittent asthma, uncomplicated (6) Hyponatremia Current Visit: No Status: Acute This does seem to be chronic when he first arrived is 122 now is 124. We will continue to monitor. (7) Hyperammonemia Current Visit: No Status: Acute (8) CAD (coronary artery disease) Current Visit: No Status: Chronic Recent stent placement Troponin was normal, BNP was 13, EKG had no signs of acute ischemic changes. Patient is not complaining of any chest pain Qualifiers: Coronary Disease-Associated Artery/Lesion type: [place] artery [place] vs. transplanted heart: [place] heart Associated angina: without angina Qualified Code(s): I25.10 - Atherosclerotic heart disease of [place] coronary artery without angina pectoris (9) DVT prophylaxis Current Visit: No Status: Acute Mechanical SCDs Subjective Principal diagnosis: Upper GI bleed Interval history: Patient no acute overnight events. Patient was seen today, chart, labs, imaging was reviewed today. Patient did well overnight he did receive 2 units of packed red blood cells. However hemoglobin is still dropping so we will get repeat the supported to see if patient needs more blood. Patient also was mildly hypotensive according to nursing staff was whenever he laid on his right side on the blood pressure cuff. Otherwise he had normal blood pressures. Patient was not started on vasopressors. Objective PUL Vital signs: Last Vital Signs Temp 97.7 F 09/08/17 07:00 Pulse 64 09/08/17 08:00 Resp 18 09/08/17 08:00 BP 87/54 09/08/17 08:00 Pulse Ox 97 09/08/17 08:00 General appearance: no acute distress Eyes: nonicteric ENT: oropharynx moist Neck: supple Auscultation: bilateral: wheezes Cardiovascular: regular rate and rhythm Gastrointestinal: normoactive bowel sounds, soft, non-tender, non-distended Integumentary: normal Extremities: no cyanosis, no edema, no clubbing Musculoskeletal: no deformities, ROM normal normal mental status, non-focal exam, pupils equal and round, motor strength normal and symmetric Results - Laboratory Findings CBC and BMP: 09/08/17 09:18 09/08/17 04:14 PT/INR, D-dimer PT 13.2 Seconds (9.4-12.1) H 09/07/17 15:38 Abnormal lab findings: Abnormal lab results RBC 1.79 M/mcL (4.19-5.50) L 09/08/17 00:32 Hgb 5.5 g/dL (12.9-16.9) L* D 09/08/17 00:32 Hct 15.6 % (37.5-50.1) L 09/08/17 00:32 RDW 15.9 % (11.5-14.5) H 09/08/17 00:32 Plt Count 76 K/mcL (140-400) L 09/08/17 00:32 PT 13.2 Seconds (9.4-12.1) H 09/07/17 15:38 Sodium 124 mEq/L (136-145) L 09/08/17 04:14 Potassium 5.6 mEq/L (3.5-5.1) H 09/08/17 04:14 Carbon Dioxide 21 mEq/L (23-29) L 09/08/17 04:14 BUN 53 mg/dL (6-20) H 09/08/17 04:14 Creatinine 1.38 mg/dL (0.70-1.30) H 09/08/17 04:14 Est GFR (Non-Af Amer) 53 (> 60) L 09/08/17 04:14 BUN/Creatinine Ratio 38 (6-26) H 09/08/17 04:14 POC Glucose 109 mg/dL (70-99) H 09/07/17 11:06 Calculated Osmolality 272 (280-300) L 09/08/17 04:14 Total Bilirubin 1.8 mg/dL (0.3-1.0) H 09/07/17 15:38 Serum Total Protein 5.4 g/dL (6.4-8.9) L 09/07/17 15:38 Albumin 2.4 g/dL (3.5-5.7) L 09/07/17 15:38 Albumin/Globulin Ratio 0.8 (1.1-2.2) L 09/07/17 15:38 - Microbiology Findings Microbiology Findings: Microbiology, Last 48 Hours 09/07/17 15:38 Blood Culture - Preliminary Peripheral Venipuncture Culture is incubating and being continuously monitored for growth. Final report to follow. 09/07/17 15:38 Blood Culture - Preliminary Peripheral Venipuncture Culture is incubating and being continuously monitored for growth. Final report to follow. 09/07/17 15:38 Blood Culture - Preliminary Peripheral Venipuncture Culture is incubating and being continuously monitored for growth. Final report to follow. - Clinical Findings Intake & Output: Intake & Output 09/07/17 09/08/17 09/08/17 23:59 07:59 15:59 Intake Total 534 / 534 660.1 / 660.1 Output Total 300 / 300 650 / 650 Balance 234 / 234 10.1 / 10.1 Weight 88.2 kg
[2017-09-08 09:31] LABS: Basophils % 0.9 %; Immature Granulocytes % 0.7 % (0-4); Lymphocytes % 11.8 %; Mean Corpuscular Hemoglobin 29.9 pg (28.0-33.3); Red Cell Distribution Width 15.9 % (11.5-14.5)
[2017-09-08 09:33] LABS: Basophils # 0.1 K/mcL (0.0-0.2); Eosinophils # 0.2 K/mcL (0.0-0.6); Eosinophils % 2.7 %; Hematocrit 24.3 % (37.5-50.1); Hemoglobin 8.2 g/dL (12.9-16.9); Immature Platelets 2.8 % (1.1-6.1); Lymphocytes # 0.7 K/mcL (0.6-4.6); Mean Corpuscular HGB Conc 33.7 g/dL (31.6-35.5); Mean Corpuscular Volume 88.7 fL (83.0-100.0); Mean Platelet Volume 9.7 fL (9.4-12.4); Monocytes # 0.7 K/mcL (0.0-1.3); Monocytes % 12.7 %; Red Blood Count 2.74 M/mcL (4.19-5.50); Segmented Neutrophils % 71.2 %
[2017-09-08 09:34] LABS: Neutrophils # 4.1 K/mcL (1.6-8.9); Platelet Count 95 K/mcL (140-400)
[2017-09-08] MEDS: Pantoprazole 40 MG VIAL IVP SCH (09:41)
[2017-09-08] MEDS: Ipratropium/Albuterol Neb 3 ML IH SCH ×3 (10:49→22:22)
[2017-09-08] MEDS: Budesonide/Formoterol 160/4.5 MDI IH SCH ×2 (10:49→22:22)
[2017-09-08] MEDS: cefTRIAXone 2,000 MG in Water for inj. (sterile) 20 ML 20 ML IVP SCH (14:37)
[2017-09-08 16:28] LABS: Basophils % 0.7 %; Eosinophils # 0.1 K/mcL (0.0-0.6); Eosinophils % 2.2 %; Hematocrit 20.9 % (37.5-50.1); Hemoglobin 7.3 g/dL (12.9-16.9); Immature Granulocytes % 0.4 % (0-4); Lymphocytes % 16.5 %; Mean Corpuscular HGB Conc 34.9 g/dL (31.6-35.5); Mean Corpuscular Hemoglobin 31.1 pg (28.0-33.3); Mean Corpuscular Volume 88.9 fL (83.0-100.0); Mean Platelet Volume 9.6 fL (9.4-12.4); Monocytes # 0.5 K/mcL (0.0-1.3); Monocytes % 11.7 %; Neutrophils # 3.1 K/mcL (1.6-8.9); Red Blood Count 2.35 M/mcL (4.19-5.50); Red Cell Distribution Width 16.1 % (11.5-14.5); Segmented Neutrophils % 68.5 %
[2017-09-08 16:30] LABS: Lymphocytes # 0.7 K/mcL (0.6-4.6); Platelet Count 74 K/mcL (140-400)
[2017-09-08] MEDS ORDERED: hydrOXYzine pamoate 25 MG CAPSULE PO PRN (17:58)
--- NOTE | 2017-09-08 19:55 | Internal Med Progress Note ---
Date of Encounter: 09/08/17 Time of Encounter: 11:00 - Assessment and plan (1) Esophageal varix bleeding Current Visit: Yes Status: Acute Assessment and plan: Patient presented with acute blood loss anemia found to have grade 2 varices status post 2 bands on EGD Continue octreotide drip and Protonix IV GI following an appreciate any further recommendations Qualifiers: Esophageal varices type: unspecified type Qualified Code(s): I85.01 - Esophageal varices with bleeding (2) Acute blood loss anemia Current Visit: No Status: Acute Assessment and plan: Secondary to the above Hemoglobin stable status post 2 units of packed red blood cells Continue to monitor (3) DVT prophylaxis Current Visit: No Status: Acute Assessment and plan: SCDs - Time Spent With Patient Total time spent is greater than 50% in coordination of care (as documented) at patient's floor/unit and/or counseling patient: - Subjective Interval history: Patient presented with acute blood loss anemia found to have grade 2 varices status post 2 bands on EGD - Constitutional Vitals: Temp Pulse Resp BP Pulse Ox 98.2 F 62 18 115/30 95 09/08/17 19:00 09/08/17 19:00 09/08/17 19:00 09/08/17 19:00 09/08/17 19:00 General appearance: Present: no acute distress - Cardiovascular Cardiovascular exam: Present: RRR, +S1, +S2. Absent: diastolic murmur, gallop, rubs, systolic murmur - GI/Abdominal GI/Abdominal exam: Present: normal bowel sounds, soft, no peritoneal signs. Absent: distended, tenderness Internal Medicine: Result - Labs CBC & Chem 7: 09/08/17 16:15 09/08/17 04:14 Labs: Short CBC 09/08/17 09/08/17 09/08/17 Range/Units 00:32 09:18 16:15 WBC 5.1 5.8 4.5 (4.3-11.1) K/mcL Hgb 5.5 L* D 8.2 L D 7.3 L (12.9-16.9) g/dL Hct 15.6 L 24.3 L 20.9 L (37.5-50.1) % Plt Count 76 L 95 L 74 L (140-400) K/mcL Neutrophils # 3.5 4.1 3.1 (1.6-8.9) K/mcL BMP 09/08/17 09/08/17 00:32 04:14 Sodium 123 L 124 L Potassium 5.1 5.6 H Chloride 97 L 98 Carbon Dioxide 20 L 21 L BUN 57 H 53 H Creatinine 1.36 H 1.38 H Glucose 81 88 Calcium 8.7 8.6 - ABG Interpretation ABG results: PT/INR, D-dimer PT 13.2 Seconds (9.4-12.1) H 09/07/17 15:38 Consult Discharge Plan - Plan Referrals: Pauline Hamilton [Primary Care Provider] -
[2017-09-09 00:52] LABS: Basophils % 0.8 %; Immature Granulocytes % 0.6 % (0-4); Monocytes % 12.5 %
[2017-09-09 00:54] LABS: Eosinophils # 0.2 K/mcL (0.0-0.6); Hemoglobin 7.3 g/dL (12.9-16.9); Immature Platelets 3.3 % (1.1-6.1); Lymphocytes # 0.8 K/mcL (0.6-4.6); Mean Corpuscular HGB Conc 34.8 g/dL (31.6-35.5); Mean Corpuscular Hemoglobin 30.9 pg (28.0-33.3); Mean Platelet Volume 9.8 fL (9.4-12.4); Monocytes # 0.6 K/mcL (0.0-1.3); Red Blood Count 2.36 M/mcL (4.19-5.50); Red Cell Distribution Width 16.3 % (11.5-14.5); Segmented Neutrophils % 68.1 %
[2017-09-09 00:58] LABS: Neutrophils # 3.5 K/mcL (1.6-8.9); Platelet Count 78 K/mcL (140-400)
[2017-09-09] MEDS: Ipratropium/Albuterol Neb 3 ML IH SCH ×4 (04:06→22:02)
[2017-09-09] MEDS: Octreotide 400 MCG in 0.9 % Sodium Chloride 100 ML IVC SCH ×3 (05:06→22:22)
[2017-09-09 05:36] LABS: BUN/Creatinine Ratio 33 (6-26); Blood Urea Nitrogen 41 mg/dL (6-20); Calcium 8.6 mg/dL (8.6-10.3); Carbon Dioxide 24 mEq/L (23-29); Chloride 103 mEq/L (98-107); Glucose 115 mg/dL (70-105); Osmolality,Calculated 277 (280-300); Potassium 4.9 mEq/L (3.5-5.1); Sodium 128 mEq/L (136-145); eGFR For African Americans > 60 (> 60); eGFR For Non-African Americans 59 (> 60)
[2017-09-09] MEDS: Pantoprazole 40 MG VIAL IVP SCH ×2 (08:40→10:41)
[2017-09-09] MEDS ORDERED: Naloxone 0.4 MG/ML INJ IVP PRN (08:44)
[2017-09-09] MEDS ORDERED: hydrOXYzine pamoate 25 MG CAPSULE PO PRN (08:44)
--- NOTE | 2017-09-09 08:54 | Internal Med Progress Note ---
Date of Encounter: 09/09/17 Time of Encounter: 11:00 - Assessment and plan (1) Esophageal varix bleeding Current Visit: Yes Status: Acute Assessment and plan: Patient presented with acute blood loss anemia found to have grade 2 varices status post 2 bands on EGD Continue octreotide drip and Protonix IV GI following an appreciate any further recommendations Qualifiers: Esophageal varices type: unspecified type Qualified Code(s): I85.01 - Esophageal varices with bleeding (2) Acute blood loss anemia Current Visit: No Status: Acute Assessment and plan: Secondary to the above Hemoglobin stable status post 2 units of packed red blood cells Continue to monitor (3) Ascites Current Visit: No Status: Acute Assessment and plan: Paracentesis by IR @ [place] twice weekly. Qualifiers: Ascites type: due to alcoholic cirrhosis Qualified Code(s): K70.31 - Alcoholic cirrhosis of liver with ascites (4) CAD (coronary artery disease) Current Visit: No Status: Chronic Assessment and plan: Cardiac stent (06/22/17) @ [facility]. Qualifiers: Coronary Disease-Associated Artery/Lesion type: [place] artery [place] vs. transplanted heart: [place] heart Associated angina: without angina Qualified Code(s): I25.10 - Atherosclerotic heart disease of [place] coronary artery without angina pectoris (5) DVT prophylaxis Current Visit: No Status: Acute Assessment and plan: SCDs - Time Spent With Patient Total time spent is greater than 50% in coordination of care (as documented) at patient's floor/unit and/or counseling patient: - Subjective Interval history: Patient presented with acute blood loss anemia found to have grade 2 varices status post 2 bands on EGD Patient's hemoglobin has been stable overnight and has been transferred from the ICU to the medical floor - Constitutional Vitals: Temp Pulse Resp BP Pulse Ox 98.2 F 77 20 83/54 96 09/09/17 08:03 09/09/17 07:41 09/09/17 07:00 09/09/17 07:00 09/09/17 07:00 General appearance: Present: no acute distress Internal Medicine: Result - Labs CBC & Chem 7: 09/09/17 00:18 09/09/17 04:45 Labs: Short CBC 09/08/17 09/08/17 09/09/17 Range/Units 09:18 16:15 00:18 WBC 5.8 4.5 5.1 (4.3-11.1) K/mcL Hgb 8.2 L D 7.3 L 7.3 L (12.9-16.9) g/dL Hct 24.3 L 20.9 L 21.0 L (37.5-50.1) % Plt Count 95 L 74 L 78 L (140-400) K/mcL Neutrophils # 4.1 3.1 3.5 (1.6-8.9) K/mcL BMP 09/09/17 04:45 Sodium 128 L Potassium 4.9 Chloride 103 Carbon Dioxide 24 BUN 41 H Creatinine 1.26 Glucose 115 H Calcium 8.6 - ABG Interpretation ABG results: PT/INR, D-dimer PT 13.2 Seconds (9.4-12.1) H 09/07/17 15:38 Consult Discharge Plan - Plan Referrals: Pauline Hamilton [Primary Care Provider] -
[2017-09-09] MEDS: Budesonide/Formoterol 160/4.5 MDI IH SCH ×2 (09:31→22:03)
[2017-09-09] MEDS ORDERED: 0.9 % Sodium Chloride 500 ML ONE (11:22)
[2017-09-09] MEDS: cefTRIAXone 2,000 MG in Water for inj. (sterile) 20 ML 20 ML IVP SCH (14:35)
[2017-09-09] MEDS ORDERED: Methyl Salicylate/Menthol 28 GM TUBE TP PRN (21:27)
[2017-09-09] MEDS: Nicotine 21 MG PATCH.TD24 TD SCH (22:21)
[2017-09-10] MEDS: Ipratropium/Albuterol Neb 3 ML IH SCH ×3 (03:36→16:00)
[2017-09-10 05:06] LABS: BUN/Creatinine Ratio 25 (6-26); Blood Urea Nitrogen 27 mg/dL (6-20); Calcium 8.6 mg/dL (8.6-10.3); Carbon Dioxide 22 mEq/L (23-29); Chloride 99 mEq/L (98-107); Glucose 125 mg/dL (70-105); Osmolality,Calculated 271 (280-300); Potassium 4.8 mEq/L (3.5-5.1); Sodium 127 mEq/L (136-145); eGFR For African Americans > 60 (> 60); eGFR For Non-African Americans > 60 (> 60)
[2017-09-10] MEDS: Octreotide 400 MCG in 0.9 % Sodium Chloride 100 ML IVC SCH (06:39)
[2017-09-10] MEDS: Pantoprazole 40 MG VIAL IVP SCH (09:00)
[2017-09-10] MEDS: Nicotine 21 MG PATCH.TD24 TD SCH (09:47)
[2017-09-10] MEDS: Budesonide/Formoterol 160/4.5 MDI IH SCH (10:40)
[2017-09-10 12:28] LABS: Basophils % 0.7 %; Hemoglobin 8.8 g/dL (12.9-16.9)
[2017-09-10 12:30] LABS: Eosinophils # 0.2 K/mcL (0.0-0.6); Eosinophils % 2.5 %; Hematocrit 26.2 % (37.5-50.1); Immature Granulocytes % 0.3 % (0-4); Immature Platelets 3.7 % (1.1-6.1); Lymphocytes # 0.8 K/mcL (0.6-4.6); Lymphocytes % 12.8 %; Mean Corpuscular HGB Conc 33.6 g/dL (31.6-35.5); Mean Corpuscular Hemoglobin 30.9 pg (28.0-33.3); Mean Corpuscular Volume 91.9 fL (83.0-100.0); Mean Platelet Volume 9.5 fL (9.4-12.4); Monocytes # 0.6 K/mcL (0.0-1.3); Monocytes % 9.8 %; Neutrophils # 4.4 K/mcL (1.6-8.9); Red Blood Count 2.85 M/mcL (4.19-5.50); Red Cell Distribution Width 16.6 % (11.5-14.5); Segmented Neutrophils % 73.9 %
[2017-09-10 12:31] LABS: Platelet Count 88 K/mcL (140-400)
--- NOTE | 2017-09-10 13:21 | Electrocardiograph Report ---
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
[2017-09-10] MEDS: cefTRIAXone 2,000 MG in Water for inj. (sterile) 20 ML 20 ML IVP SCH (15:00)
[2017-09-10 15:08] VITALS: BP 106/57
--- NOTE | 2017-09-10 16:57 | Discharge Summary ---
- NOTES TO OUTPATIENT PROVIDER Notes to Outpatient Provider: Follow-up with GI as an outpatient Orders not resulted at time of discharge: Pending orders 09/07/17 15:38 Culture,Blood [BC] Stat Culture,Blood,Additional [BC] Stat Date of Encounter: 09/10/17 Time of Encounter: 11:00 - Discharge Diagnosis (1) Esophageal varix bleeding Priority: Primary Status: Acute Qualifiers: Esophageal varices type: unspecified type Qualified Code(s): I85.01 - Esophageal varices with bleeding (2) Acute blood loss anemia Priority: Primary Status: Acute (3) Ascites Priority: Primary Status: Acute Qualifiers: Ascites type: due to alcoholic cirrhosis Qualified Code(s): K70.31 - Alcoholic cirrhosis of liver with ascites (4) CAD (coronary artery disease) Priority: Secondary Status: Chronic Qualifiers: Coronary Disease-Associated Artery/Lesion type: [place] artery [place] vs. transplanted heart: [place] heart Associated angina: without angina Qualified Code(s): I25.10 - Atherosclerotic heart disease of [place] coronary artery without angina pectoris Hospital course: liver cirrhosis who presents to the ER on 09/07/17 due to hematemesis He presented to the outside hospital last night complaining of dizziness and shortness of breath after standing along with having vomited up blood 24 hours prior and generally feeling unwell. He denied any chest pain fever chills or abdominal pain. Patient requested transfer to [facility] were used initially accepted by the hospitalist service he was started on Protonix drip and transfusion of 2 units was undertaken he was and transferred to [facility] where he was initially triaged to the med telemetry floor where he was taken from there to endoscopy suite and underwent esophageal banding for a bleeding varix. GI recommended the patient be on octreotide drip and Protonix IV which was later discontinued. He will be discharged to follow-up with GI as an outpatient. - Time Spent with Patient Total time spent providing and/or coordinating discharge services: Less than 30 minutes - Discharge Medications Home Medications: Ammonium Lactate 1 appl TP BID 07/17/17 [History] Aspirin [Lo-Dose Aspirin EC] 81 mg PO DAILY 07/17/17 [History] Calcium Carbonate [Calcium] 500 mg PO DAILY 07/17/17 [History] Carvedilol 3.125 mg PO BID 07/17/17 [History] Clopidogrel [Plavix] 75 mg PO DAILY 07/17/17 [History] DiphenhydraMINE [Benadryl] 50 mg PO HS PRN 07/17/17 [History] Ergocalciferol (VITAMIN D2) [Vitamin D2] 50,000 unit PO QWEEK 07/17/17 [History] Fluticasone/Salmeterol [Advair 250-50 Diskus] 1 puff IH BID 07/17/17 [History] Furosemide [Lasix] 80 mg PO DAILY 07/17/17 [History] Melatonin 8 mg PO HS 07/17/17 [History] Allergies/Adverse Reactions: 3 Allergy/AdvReac Type Severity Reaction Status Date / Time No Known Allergies Allergy Verified 07/17/17 08:53 Date of admission: 09/07/17 14:57 Primary care physician: Pauline Hamilton - Constitutional Vitals: Temp Pulse Resp BP Pulse Ox 97.8 F 76 18 106/57 97 09/10/17 15:05 09/10/17 15:05 09/10/17 16:01 09/10/17 15:05 09/10/17 16:01 General appearance: Present: no acute distress - Cardiovascular Cardiovascular exam: Present: RRR, +S1, +S2. Absent: diastolic murmur, gallop, rubs, systolic murmur - Patient Status Disposition: Home, Self-Care - Discharge Instructions Follow Up With: Pauline Hamilton [Primary Care Provider] - 09/17/17 1:30 pm
== END 2017-09-10 17:40 | disposition home or self-care (01) | DRG 811 ==
LOC: 3ANU → ICNU 11:19 → SUATTDRO 14:57 → 3ANU 09-09 09:51
PROVIDERS: ADMIT Internal Medicine; ATTEND Hospitalist

== ENCOUNTER 2018-09-27 06:45 | Observation (INO) ==
[2018-09-27] MEDS ORDERED: Heparin 1,000 UNITS/500 mL 500 ML ONE ×2 (07:07→10:35)
[2018-09-27] MEDS ORDERED: 0.9 % Sodium Chloride 500 ML ONE (07:07)
[2018-09-27] MEDS ORDERED: 0.9 % Sodium Chloride 1,000 ML ONE ×4 (09:06→11:21)
[2018-09-27] MEDS ORDERED: Ampicillin/Sulbactam 1,500 MG in 0.9 % Sodium Chloride Mini Bag 100 ML IVPB ONE (09:07)
[2018-09-27] MEDS ORDERED: *HR* FentaNYL (PF) 100 MCG/2 ML VIAL IVP ONE ×3 (09:07→10:12)
[2018-09-27] MEDS ORDERED: *HR* Midazolam HCl 2 MG/2 ML VIAL IVP ONE ×2 (09:07→09:24)
--- NOTE | 2018-09-27 09:09 | Pre-Sedation Evaluation ---
Pre-sedation evaluation - Pre-sedation checklist Date of procedure: 09/27/18 Procedure: TIPS Recent Vitals: Last Vital Signs Temp 98.4 F 09/27/18 07:17 Pulse 79 09/27/18 07:17 Resp 18 09/27/18 07:17 BP 130/80 09/27/18 07:17 H&P (including ROS) documented in medical record: Yes Previous reaction to sedatives/anesthetics: No Dietary Status: NPO after Midnight Airway Assessment: Patient can open mouth completely, TMJ function normal, Micrognathia (under-bite, receding chin) absent, Neck with adequate range of motion Dentition: No loose teeth or bridges Possible difficult airway: No ASA Classification *see protocol: CLASS II-Mild systemic disease Plan of Care: Pt appropriate candidate for procedure/moderate/conscious sedation, Risks/benefits of procedure/sedation discussed w/ patient/family, If not NPO; Risk of intake outweiged by necessity to perform procedure Cardiac Registry (Cardio Only) - Clincal Frailty Scale Clinical Frailty Scale: Well
--- NOTE | 2018-09-27 09:10 | History & Physical Report ---
Date of Encounter: 09/27/18 Time of Encounter: 08:00 24 Hour HP Update - Instructions Instructions: If the History and Physical is less than 30 days old and was completed prior to A.M. admission and or procedure and has NOT been updated on calendar day of procedure please complete this update prior to performing procedure. - Update Patient reports changes in Medical Condition: No Changes in examination, assessment, or condition: No Changes in Medication: No Preop tests/diagnostics Reviewed: Yes Pre-Op MRSA Screen: Negative Surgery Remains Indicated: Yes Consent for Planned Operative Procedure(s) Verified: Yes - Pre-Operative Checklist Preoperative Checklist Indicated: Yes Prophylactic Antibiotic Ordered: Yes Is VTE Prophylaxis Indicated?: NO
[2018-09-27] MEDS ORDERED: *HR* FentaNYL (PF) 100 MCG/2 ML VIAL ONE ×2 (09:24→10:13)
[2018-09-27] MEDS ORDERED: *HR* Midazolam HCl 2 MG/2 ML VIAL ONE (09:25)
[2018-09-27] MEDS ORDERED: *HR* Metoprolol 5 MG/5 ML VIAL IVP ONE ×2 (09:28→09:29)
[2018-09-27] MEDS ORDERED: Isovue-300 50 ML VIAL IVP ONE ×4 (10:14→10:28)
--- NOTE | 2018-09-27 11:14 | IR Procedure Note ---
Date of procedure: 09/27/18 Consent Obtained: Written consent Timeout: Correct patient and procedure verified, Correct site verified, Time out performed, Skin prep completed Local anesthetic: Lidocaine 1% Was there an ex assistant/program director present: No Estimated blood loss (cc): 0 Complications: None; Tolerated procedure well Indications: Ascites Procedure Performed: paracentesis Site/Technique: abdomen, right Results/Findings (any specimens removed): 2 liters of fluid Post Procedure Treatment Plan: for TIPS procedure Specimen: 2 liters of ascites
--- NOTE | 2018-09-27 11:17 | IR Procedure Note ---
Date of procedure: 09/27/18 Consent Obtained: Written consent Timeout: Correct patient and procedure verified, Correct site verified, Time out performed, Skin prep completed Local anesthetic: Lidocaine 1% Was there an teachers' assistant present: No Estimated blood loss (cc): 4 Complications: None; Tolerated procedure well Indications: portal htn, ascites intractable, cirrhosis Procedure Performed: TIPS Site/Technique: RHV to Right portal vein shunt dilated to 10mm. Excellent flow through the shunt Results/Findings (any specimens removed): Portal HTN relieved with shunt Post Procedure Treatment Plan: Admit to ICU Specimen: none
[2018-09-27] MEDS ORDERED: Naloxone 0.4 MG/ML INJ IVP PRN (12:59)
--- NOTE | 2018-09-27 13:02 | Internal Med History&Physical ---
Date of Encounter: 09/27/18 Time of Encounter: 13:02 Internal Medicine - H&P: HPI History of present illness: Mr. Hutchinson is a 58 year old male Past Med Surg Social Fam HX - Past Medical History Medical history: asthma, liver disease Additional medical history: cirrhosis, Psychiatric history: no psych history - Past Surgical History Surgical History: angioplasty/stent Additional surgical history: Heart stent (06/22/17) @ [place]. Tapped by IR @ [place] twice weekly. - Social History Smoking Status: Current some day smoker Smokeless Tobacco Status: No Alcohol use: none Drug use: none - Family History Mother Living Status: Internal Medicine - H&P: Meds Ammonium Lactate 1 appl TP BID 07/17/17 [History] Aspirin [Lo-Dose Aspirin EC] 81 mg PO DAILY 07/17/17 [History] Calcium Carbonate [Calcium] 500 mg PO DAILY 07/17/17 [History] Carvedilol 3.125 mg PO BID 07/17/17 [History] Clopidogrel [Plavix] 75 mg PO DAILY 07/17/17 [History] DiphenhydraMINE [Benadryl] 50 mg PO HS PRN 07/17/17 [History] Ergocalciferol (VITAMIN D2) [Vitamin D2] 50,000 unit PO QWEEK 07/17/17 [History] Fluticasone/Salmeterol [Advair 250-50 Diskus] 1 puff IH BID 07/17/17 [History] Furosemide [Lasix] 80 mg PO DAILY 07/17/17 [History] Melatonin 8 mg PO HS 07/17/17 [History] Allergy/AdvReac Type Severity Reaction Status Date / Time No Known Allergies Allergy Verified 07/17/17 08:53 All Systems PM: A 10-system review of systems was performed and is negative for pertinent findings except as documented above in the HPI. - Constitutional Vitals: Temp Pulse Resp BP Pulse Ox 97.4 F L 110 18 114/74 94 09/27/18 11:57 09/27/18 11:57 09/27/18 11:57 09/27/18 11:57 09/27/18 11:57 Internal Med - H&P Results - Impressions ITS Impressions Paracentesis Ultrasound 09/27/18 00:00 IMPRESSION: Successful ultrasound guided paracentesis. D/ / Kasey Mederos MD / Kasey Mederos MD Interpreting Provider: Kasey Mederos MD - Time Spent With Patient Total time spent is greater than 50% in coordination of care (as documented) at patient's floor/unit and/or counseling patient:
--- NOTE | 2018-09-27 13:06 | Pulmonology History & Physical ---
<Shaina Melchor - Last Filed: 09/28/18 07:00> Date of Encounter: 09/28/18 Time of Encounter: 13:06 Assessment and Plan (1) Atrial fibrillation with RVR Current visit: Yes Status: Acute Patient underwent TIPS procedure on 09/27 After procedure patient developed atrial fibrillation with rapid ventricular rate Patient has no past medical history of A. fib Given 5 mg of IV Lopressor after procedure which did not resolve the patient's A. fib Patient currently asymptomatic We will order stat labs, trend troponins Stat echo ordered shows EF of 65% without any acute abnormalities Per Dr. Mederos the TIPS procedure was difficult and he believes he irritated the right atrium which may have caused him to go into afib No anticoagulation for [address] Mederos Pt converted to a bradycardic rhythm at 50 bpm at 1346 - will obtain stat EKG (2) Elevated troponin Current visit: Yes Status: Acute Troponin 0.08 upon arrival to ICU Has never had an elevated troponin before on record Unable to anticoagulate for 48 hours post TIPS Will continue to trend Further plan as above (3) Hypotension Current visit: No Status: Acute Pt with BPs in the 80s/50s s/p development of afib and lopressor administration Pt now with BP 140/129 Continue to monitor and keep map above 65 Qualifiers: Hypotension type: unspecified hypotension type Qualified Code(s): I95.9 - Hypotension, unspecified (4) Hyperammonemia Current visit: No Status: Acute Ammonia 85 on 09/25 Stat labs drawn show ammonia of 54 on 09/27 Pt underwent TIPS procedure today Continue home meds Continue to trend (5) Cirrhosis Current visit: No Status: Chronic Plan as above Qualifiers: Hepatic cirrhosis type: alcoholic cirrhosis Ascites presence: with ascites Qualified Code(s): K70.31 - Alcoholic cirrhosis of liver with ascites (6) DVT prophylaxis Current visit: No Status: Acute EPCDs No anticoagulation for 48 hours post procedure History of Present Illness HPI: Mr. Hutchinson is a 58 year old male with past medical history of asthma and liver disease who presented to the ICU after complication while undergoing TIPS procedure by interventional radiology. The patient developed atrial fibrillation and became hypotensive. The patient was given 5 mg of Lopressor to control his heart rate while still in IR. He states that he does not have a history of irregular heart rate. He is otherwise feeling well without any complaints except being tired from having to wake up early for the procedure this morning. He denies headache, chest pain, shortness of breath, abdominal pain, nausea and vomiting, diarrhea. Patient is full code. Past Med Surg Social Fam HX - Past Medical History Medical history: asthma, liver disease Additional medical history: cirrhosis, Psychiatric history: no psych history - Past Surgical History Surgical History: angioplasty/stent Additional surgical history: Heart stent (06/22/17) @ [facility]. Tapped by IR @ [place] twice weekly. - Social History Smoking Status: Current some day smoker Smokeless Tobacco Status: No Alcohol use: none Drug use: none - Family History Mother Living Status: Medications and Allergies Aspirin [Lo-Dose Aspirin EC] 81 mg PO DAILY 07/17/17 [History] Carvedilol 3.125 mg PO DAILY 07/17/17 [History] DiphenhydraMINE [Benadryl] 50 mg PO HS PRN 07/17/17 [History] Ergocalciferol (VITAMIN D2) [Vitamin D2] 50,000 unit PO FR 07/17/17 [History] Fluticasone/Salmeterol [Advair 250-50 Diskus] 1 puff IH DAILY 07/17/17 [History] Furosemide [Lasix] 80 mg PO DAILY 07/17/17 [History] Lactulose 10 gm PO DAILY PRN 09/27/18 [History] Melatonin 3 mg PO HS PRN 09/27/18 [History] Melatonin 5 mg PO HS PRN 09/27/18 [History] Calcium Carbonate [Tums] 500 mg PO DAILY tab.chew 09/28/18 [Rx] Clopidogrel [Plavix] 75 mg PO DAILY tablet 09/28/18 [Rx] DiphenhydraMINE [Benadryl] 50 mg PO HS PRN capsule 09/28/18 [Rx] Allergy/AdvReac Type Severity Reaction Status Date / Time No Known Allergies Allergy Verified 09/27/18 22:35 All Systems: The remainder of the systems were reviewed and are negative - Constitutional Constitutional: no fatigue, no fever(s) - EENT Nose, mouth and throat: no dizziness, no vertigo - Cardiovascular Cardiovascular: no chest pain, no dyspnea, no dyspnea on exertion, no edema - Respiratory Respiratory: no cough, no dyspnea, no wheezing - Gastrointestinal Gastrointestinal: no abdominal pain, no diarrhea, no nausea, no vomiting - Genitourinary Genitourinary: no dysuria, no hematuria - Musculoskeletal Musculoskeletal: no weakness, no numbness - Neurological Neurological: no confusion, no numbness, no vertigo Physical Examination Vital Signs: Vital Signs, Last 4 Hours Temp Pulse Resp BP Pulse Ox 09/27/18 11:57 97.4 F L 110 18 114/74 94 09/27/18 10:54 122 16 90/69 93 09/27/18 10:48 122 14 99/67 93 09/27/18 10:44 117 13 113/93 94 09/27/18 10:38 108 13 103/72 92 09/27/18 10:34 115 16 96/63 96 09/27/18 10:29 128 14 103/72 93 09/27/18 10:24 114 14 88/68 93 09/27/18 10:20 124 14 92/67 93 09/27/18 10:15 105 14 97/68 96 09/27/18 10:09 113 18 102/70 96 09/27/18 10:03 110 16 97/71 96 09/27/18 09:59 118 14 81/60 96 09/27/18 09:53 92 14 99/71 95 09/27/18 09:48 118 15 102/49 97 09/27/18 09:43 114 14 97/68 98 09/27/18 09:38 109 15 86/71 96 09/27/18 09:33 128 19 98/64 96 09/27/18 09:29 129 13 102/75 96 09/27/18 09:25 123 20 115/63 98 09/27/18 09:19 66 16 144/74 99 09/27/18 09:15 67 14 132/73 99 General appearance: no acute distress, alert Eyes: nonicteric Effort: normal Auscultation: bilateral: clear Cardiovascular: irregular rhythm, other (tachycardia) Gastrointestinal: soft, non-tender, other (mildly distended) Integumentary: normal Extremities: no edema, pink and warm normal mental status, non-focal exam, pupils equal and round mood appropriate, affect normal Results - Laboratory Findings CBC and BMP: 09/27/18 13:15 09/28/18 05:15 <Lidya Rodríguez M - Last Filed: 09/28/18 09:47> Date of Encounter: 09/27/18 History of Present Illness HPI: Mr. Hutchinson is a 58 year old male All Systems: The remainder of the systems were reviewed and are negative Physical Examination Vital Signs: Vital Signs, Last 4 Hours Temp Pulse Resp BP Pulse Ox 09/27/18 12:57 126 15 103/88 90 09/27/18 11:57 97.4 F L 110 18 114/74 94 09/27/18 10:54 122 16 90/69 93 09/27/18 10:48 122 14 99/67 93 09/27/18 10:44 117 13 113/93 94 09/27/18 10:38 108 13 103/72 92 09/27/18 10:34 115 16 96/63 96 Results - Laboratory Findings CBC and BMP: 09/28/18 05:15 09/28/18 05:15 PT/INR, D-dimer PT 13.8 Seconds (9.4-12.1) H 09/27/18 13:15 Abnormal lab findings: Abnormal lab results WBC 3.1 K/mcL (4.3-11.1) L 09/27/18 13:15 RBC 3.53 M/mcL (4.19-5.50) L 09/27/18 13:15 Hgb 9.6 g/dL (12.9-16.9) L 09/27/18 13:15 Hct 30.1 % (37.5-50.1) L 09/27/18 13:15 MCH 27.2 pg (28.0-33.3) L 09/27/18 13:15 RDW 16.9 % (11.5-14.5) H 09/27/18 13:15 Plt Count 72 K/mcL (140-400) L 09/27/18 13:15 Lymphocytes # 0.3 K/mcL (0.6-4.6) L 09/27/18 13:15 Immature Plt Fraction 6.3 % (1.1-6.1) H 09/27/18 13:15 PT 13.8 Seconds (9.4-12.1) H 09/27/18 13:15 Ammonia 54 mcmol/L (16-53) H 09/27/18 13:15 Troponin I 0.08 ng/mL (< 0.04) H* 09/27/18 13:15 - Attending Attestation I examined this patient and my medical decision-making was reviewed with the Resident Physician. I agree with the documented findings, disposition and treatment plan as described except to the extent set forth below. Patient seen and examined. I was called by interventional radiologist regarding this patient and his having tachyarrhythmias with prolonged case of TIPS procedure and also hypotension Labs, radiology, chart personally reviewed. 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 Patient stated he is not on oxygen and he is currently on 3-4 L for acute hypoxic respiratory failure and will wean off FiO2, and is not clear to me at this time the cause. We will review chest x-ray. Cardiovascular: Patient is A. fib RVR and is not clear to me what triggered this and patient is on beta gely at home will resume it and treated with intravenous beta gely with checking case troponin and echocardiogram and if still not controlled then we will consider either Cardizem or metoprolol or even amiodarone for the rate control patient will not be anticoagulated because of the risk of bleeding with his underlying liver disease. Will consider cardiology consultation. I suspect there could be mechanical irritation of the heart that triggered this arrhythmia. GI: Nutrition per dietary and GI prophylaxis per routine. Patient will need to follow-up with his baking assistant for his management of his underlying liver disease. Heme: DVT prophylaxis per routine. We will monitor H&H very closely to make sure there is no complications and no bleeding. ID: There is no source of infection. Renal; urine out put and renal function reviewed Endorcine: blood glucose is monitored Lines: all lines checked and no evidence of infections Skin: skin care to prevent pressure ulcers per nursing routine care Dispo: ICU Code: Full. Prognosis. Fair I spent 45 min of Critical Care time with this patient. It involved decision making of high complexity to assess, manipulate, and support vital organ system failure and/or to prevent further life threatening deterioration of the patient's condition. The time involved in the performance of separately reportable procedures was not counted toward critical care time.
[2018-09-27 13:32] LABS: Hemoglobin 9.6 g/dL (12.9-16.9)
[2018-09-27 13:34] LABS: Eosinophils # 0.1 K/mcL (0.0-0.6); Eosinophils % 2.9 %; Hematocrit 30.1 % (37.5-50.1); Immature Granulocytes % 0.6 % (0-4); Immature Platelets 6.3 % (1.1-6.1); Lymphocytes # 0.3 K/mcL (0.6-4.6); Lymphocytes % 8.7 %; Mean Corpuscular HGB Conc 31.9 g/dL (31.6-35.5); Mean Corpuscular Hemoglobin 27.2 pg (28.0-33.3); Mean Corpuscular Volume 85.3 fL (83.0-100.0); Mean Platelet Volume 9.8 fL (9.4-12.4); Monocytes # 0.3 K/mcL (0.0-1.3); Monocytes % 10.6 %; Neutrophils # 2.4 K/mcL (1.6-8.9); Red Blood Count 3.53 M/mcL (4.19-5.50); Red Cell Distribution Width 16.9 % (11.5-14.5); Segmented Neutrophils % 76.2 %; White Blood Count 3.1 K/mcL (4.3-11.1)
[2018-09-27 13:38] LABS: Platelet Count 72 K/mcL (140-400)
[2018-09-27 13:44] LABS: INR 1.2; Prothrombin Time 13.8 Seconds (9.4-12.1)
[2018-09-27 13:47] LABS: Magnesium 1.7 mg/dL (1.6-2.6); Phosphorous 3.6 mg/dL (2.7-4.5)
[2018-09-27] MEDS ORDERED: Ergocalciferol (VIT D2) 50,000 UNIT (1.25MG) CAP PO SCH (16:00)
[2018-09-27 17:43] LABS: Albumin 2.5 g/dL (3.5-5.7); Albumin/Globulin Ratio 0.8 (1.1-2.2); Bilirubin,Direct 0.4 mg/dL (0.0-0.2); Bilirubin,Indirect 1.1 mg/dL (0.0-1.2); Bilirubin,Total 1.5 mg/dL (0.3-1.0); Globulin 3.1 g/dL (2.4-3.5); Total Protein 5.6 g/dL (6.4-8.9)
[2018-09-27 17:44] LABS: BUN/Creatinine Ratio 11 (6-26); Blood Urea Nitrogen 10 mg/dL (8-23); Calcium 8.2 mg/dL (8.6-10.3); Carbon Dioxide 29 mEq/L (23-29); Chloride 98 mEq/L (98-107); Glucose 213 mg/dL (70-105); Osmolality,Calculated 281 (280-300); Potassium 3.6 mEq/L (3.5-5.1); Sodium 133 mEq/L (136-145); eGFR For African Americans > 60 (> 60); eGFR For Non-African Americans > 60 (> 60)
[2018-09-27] MEDS: Budesonide/Formoterol 80/4.5 1 PUFF INH IH SCH (19:43)
[2018-09-27] MEDS: Ammonium Lactate 30 APPL/225 GM BOTTLE TP SCH (20:22)
[2018-09-27] MEDS ORDERED: Melatonin 3 MG TABLET PO SCH (21:00)
[2018-09-28 05:45] LABS: Albumin 2.4 g/dL (3.5-5.7); Albumin/Globulin Ratio 0.8 (1.1-2.2); BUN/Creatinine Ratio 12 (6-26); Bilirubin,Direct 0.6 mg/dL (0.0-0.2); Bilirubin,Indirect 1.1 mg/dL (0.0-1.2); Bilirubin,Total 1.7 mg/dL (0.3-1.0); Blood Urea Nitrogen 10 mg/dL (8-23); Calcium 8.8 mg/dL (8.6-10.3); Carbon Dioxide 30 mEq/L (23-29); Chloride 97 mEq/L (98-107); Globulin 3.2 g/dL (2.4-3.5); Glucose 156 mg/dL (70-105); Osmolality,Calculated 276 (280-300); Phosphorous 3.7 mg/dL (2.7-4.5); Potassium 3.4 mEq/L (3.5-5.1); Sodium 132 mEq/L (136-145); Total Protein 5.6 g/dL (6.4-8.9); eGFR For African Americans > 60 (> 60); eGFR For Non-African Americans > 60 (> 60)
--- NOTE | 2018-09-28 07:17 | Pulmonology Progress Note ---
Date of Encounter: 09/28/18 Time of Encounter: 07:16 Assessment and Plan (1) Atrial fibrillation with RVR Current Visit: Yes Status: Acute Patient underwent TIPS procedure on 09/27 After procedure patient developed atrial fibrillation with rapid ventricular rate Patient has no past medical history of A. fib Given 5 mg of IV Lopressor after procedure which did not resolve the patient's A. fib Patient currently asymptomatic We will order stat labs, trend troponins Stat echo ordered shows EF of 65% without any acute abnormalities Per Dr. Mederos the TIPS procedure was difficult and he believes he irritated the right atrium which may have caused him to go into afib No anticoagulation for [address] Mederos Pt converted to a bradycardic rhythm at 50 bpm at 1346 - will obtain stat EKG (2) Elevated troponin Current Visit: Yes Status: Acute Troponin 0.08 upon arrival to ICU Has never had an elevated troponin before on record Unable to anticoagulate for 48 hours post TIPS Will continue to trend Further plan as above (3) Hypotension Current Visit: No Status: Acute Pt with BPs in the 80s/50s s/p development of afib and lopressor administration Pt now with BP 140/129 Continue to monitor and keep map above 65 Qualifiers: Hypotension type: unspecified hypotension type Qualified Code(s): I95.9 - Hypotension, unspecified (4) Hyperammonemia Current Visit: No Status: Acute Ammonia 85 on 09/25 Stat labs drawn show ammonia of 54 on 09/27 Pt underwent TIPS procedure today Continue home meds Continue to trend (5) Cirrhosis Current Visit: No Status: Chronic Plan as above Qualifiers: Hepatic cirrhosis type: alcoholic cirrhosis Ascites presence: with ascites Qualified Code(s): K70.31 - Alcoholic cirrhosis of liver with ascites (6) DVT prophylaxis Current Visit: No Status: Acute EPCDs No anticoagulation for 48 hours post procedure Objective PUL Vital signs: Last Vital Signs Temp 98.3 F 09/28/18 06:56 Pulse 53 09/28/18 06:00 Resp 16 09/28/18 06:00 BP 107/45 09/28/18 06:00 Pulse Ox 96 09/28/18 06:00 Results - Laboratory Findings CBC and BMP: 09/27/18 13:15 09/28/18 05:15 PT/INR, D-dimer PT 13.8 Seconds (9.4-12.1) H 09/27/18 13:15 Abnormal lab findings: Abnormal lab results WBC 3.1 K/mcL (4.3-11.1) L 09/27/18 13:15 RBC 3.53 M/mcL (4.19-5.50) L 09/27/18 13:15 Hgb 9.6 g/dL (12.9-16.9) L 09/27/18 13:15 Hct 30.1 % (37.5-50.1) L 09/27/18 13:15 MCH 27.2 pg (28.0-33.3) L 09/27/18 13:15 RDW 16.9 % (11.5-14.5) H 09/27/18 13:15 Plt Count 72 K/mcL (140-400) L 09/27/18 13:15 Lymphocytes # 0.3 K/mcL (0.6-4.6) L 09/27/18 13:15 Immature Plt Fraction 6.3 % (1.1-6.1) H 09/27/18 13:15 PT 13.8 Seconds (9.4-12.1) H 09/27/18 13:15 Sodium 132 mEq/L (136-145) L 09/28/18 05:15 Potassium 3.4 mEq/L (3.5-5.1) L 09/28/18 05:15 Chloride 97 mEq/L (98-107) L 09/28/18 05:15 Carbon Dioxide 30 mEq/L (23-29) H 09/28/18 05:15 Glucose 156 mg/dL (70-105) H 09/28/18 05:15 POC Glucose 160 mg/dL (70-99) H 09/27/18 11:55 Calculated Osmolality 276 (280-300) L 09/28/18 05:15 Calcium 8.2 mg/dL (8.6-10.3) L 09/27/18 17:02 Total Bilirubin 1.7 mg/dL (0.3-1.0) H 09/28/18 05:15 Direct Bilirubin 0.6 mg/dL (0.0-0.2) H 09/28/18 05:15 AST 64 Units/L (13-39) H 09/28/18 05:15 Ammonia 84 mcmol/L (16-53) H 09/28/18 05:15 Troponin I 0.07 ng/mL (< 0.04) H* 09/27/18 21:07 Serum Total Protein 5.6 g/dL (6.4-8.9) L 09/28/18 05:15 Albumin 2.4 g/dL (3.5-5.7) L 09/28/18 05:15 Albumin 2.4 g/dL (3.5-5.7) L 09/28/18 05:15 Albumin/Globulin Ratio 0.8 (1.1-2.2) L 09/28/18 05:15 - Clinical Findings Intake & Output: Intake & Output 09/27/18 09/27/18 09/28/18 15:59 23:59 07:59 Intake Total 540 / 540 Output Total 300 / 300 Balance 540 / 540 -300 / -300 Weight 106.1 kg Consult Discharge Plan - Plan Referrals: Pauline Hamilton [Primary Care Provider] -
[2018-09-28 08:07] LABS: Hemoglobin 9.1 g/dL (12.9-16.9); Immature Granulocytes % 0.3 % (0-4)
[2018-09-28 08:08] LABS: Basophils % 0.8 %; Eosinophils # 0.2 K/mcL (0.0-0.6); Eosinophils % 4.8 %; Immature Platelets 8.3 % (1.1-6.1); Lymphocytes # 0.4 K/mcL (0.6-4.6); Lymphocytes % 11.1 %; Mean Corpuscular HGB Conc 31.4 g/dL (31.6-35.5); Mean Corpuscular Volume 86.1 fL (83.0-100.0); Mean Platelet Volume 10.9 fL (9.4-12.4); Monocytes # 0.4 K/mcL (0.0-1.3); Monocytes % 11.4 %; Neutrophils # 2.7 K/mcL (1.6-8.9); Red Blood Count 3.37 M/mcL (4.19-5.50); Red Cell Distribution Width 16.9 % (11.5-14.5); Segmented Neutrophils % 71.6 %; White Blood Count 3.8 K/mcL (4.3-11.1)
[2018-09-28 08:13] LABS: Platelet Count 63 K/mcL (140-400)
[2018-09-28] MEDS: Ammonium Lactate 30 APPL/225 GM BOTTLE TP SCH (08:37)
--- NOTE | 2018-09-28 08:58 | Discharge Summary ---
<RuizDontaeShaina R - Last Filed: 09/28/18 08:58> - NOTES TO OUTPATIENT PROVIDER Notes to Outpatient Provider: Have patient follow up with cardiology for further management of his new onset atrial fibrillation. Please schedule for sleep study to determine if the patient has sleep apnea/need for CPAP at night as he had episodes of hypoxia at night while sleeping. No medication changes ere made and patient otherwise had an uneventful procedure and subsequent hospitalization. Date of Encounter: 09/28/18 Time of Encounter: 09:00 - Discharge Diagnosis (1) Atrial fibrillation with RVR Priority: Primary Status: Acute Comments: Pt developed afib with RVR during TIPS procedure Shortly after prcedure HR returned to normal rate but was still irregular Pt asx throughout hospital course Echo showed no acute abnormalities Follow up with Cardiology as an outpatient (2) Elevated troponin Priority: Secondary Status: Acute (3) Hypotension Priority: Secondary Status: Acute Qualifiers: Hypotension type: unspecified hypotension type Qualified Code(s): I95.9 - Hypotension, unspecified (4) Hyperammonemia Priority: Secondary Status: Acute (5) Cirrhosis Priority: Secondary Status: Chronic Qualifiers: Hepatic cirrhosis type: alcoholic cirrhosis Ascites presence: with ascites Qualified Code(s): K70.31 - Alcoholic cirrhosis of liver with ascites - Discharge Medications Prescriptions: New DiphenhydraMINE [Benadryl] 50 mg PO HS PRN capsule PRN Reason: Sleep Clopidogrel [Plavix] 75 mg PO DAILY tablet Calcium Carbonate [Tums] 500 mg PO DAILY tab.chew Continued Ergocalciferol (VITAMIN D2) [Vitamin D2] 50,000 unit PO FR Fluticasone/Salmeterol [Advair 250-50 Diskus] 1 puff IH DAILY DiphenhydraMINE [Benadryl] 50 mg PO HS PRN PRN Reason: Sleep Carvedilol 3.125 mg PO DAILY Aspirin [Lo-Dose Aspirin EC] 81 mg PO DAILY Furosemide [Lasix] 80 mg PO DAILY Lactulose 10 gm PO DAILY PRN PRN Reason: Constipation Melatonin 5 mg PO HS PRN PRN Reason: Sleep Melatonin 3 mg PO HS PRN PRN Reason: Sleep Home Medications: Aspirin [Lo-Dose Aspirin EC] 81 mg PO DAILY 07/17/17 [History] Carvedilol 3.125 mg PO DAILY 07/17/17 [History] DiphenhydraMINE [Benadryl] 50 mg PO HS PRN 07/17/17 [History] Ergocalciferol (VITAMIN D2) [Vitamin D2] 50,000 unit PO FR 07/17/17 [History] Fluticasone/Salmeterol [Advair 250-50 Diskus] 1 puff IH DAILY 07/17/17 [History] Furosemide [Lasix] 80 mg PO DAILY 07/17/17 [History] Lactulose 10 gm PO DAILY PRN 09/27/18 [History] Melatonin 3 mg PO HS PRN 09/27/18 [History] Melatonin 5 mg PO HS PRN 09/27/18 [History] Calcium Carbonate [Tums] 500 mg PO DAILY tab.chew 09/28/18 [Rx] Clopidogrel [Plavix] 75 mg PO DAILY tablet 09/28/18 [Rx] DiphenhydraMINE [Benadryl] 50 mg PO HS PRN capsule 09/28/18 [Rx] Allergies/Adverse Reactions: Allergy/AdvReac Type Severity Reaction Status Date / Time No Known Allergies Allergy Verified 09/27/18 22:35 Labs on day of discharge: Labs from last 24 hours 09/28/18 09/28/18 09/28/18 05:15 05:15 05:15 WBC 3.8 L RBC 3.37 L Hgb 9.1 L Hct 29.0 L MCV 86.1 MCH 27.0 L MCHC 31.4 L RDW 16.9 H Plt Count 63 L MPV 10.9 Immature Gran % 0.3 Seg Neutrophils % 71.6 Lymphocytes % 11.1 Monocytes % 11.4 Eosinophils % 4.8 Basophils % 0.8 Neutrophils # 2.7 Lymphocytes # 0.4 L Monocytes # 0.4 Eosinophils # 0.2 Basophils # 0.0 Immature Plt Fraction 8.3 H PT INR Sodium 132 L Potassium 3.4 L Chloride 97 L Carbon Dioxide 30 H BUN 10 Creatinine 0.86 Est GFR ( Amer) > 60 Est GFR (Non-Af Amer) > 60 BUN/Creatinine Ratio 12 Glucose 156 H POC Glucose Calculated Osmolality 276 L Calcium 8.8 Phosphorus 3.7 Magnesium Total Bilirubin 1.7 H Direct Bilirubin 0.6 H Indirect Bilirubin 1.1 AST 64 H ALT 32 Alkaline Phosphatase 80 Ammonia Troponin I Serum Total Protein 5.6 L Albumin 2.4 L 2.4 L Globulin 3.2 Albumin/Globulin Ratio 0.8 L 09/28/18 09/27/18 09/27/18 05:15 21:07 17:02 WBC RBC Hgb Hct MCV MCH MCHC RDW Plt Count MPV Immature Gran % Seg Neutrophils % Lymphocytes % Monocytes % Eosinophils % Basophils % Neutrophils # Lymphocytes # Monocytes # Eosinophils # Basophils # Immature Plt Fraction PT INR Sodium Potassium Chloride Carbon Dioxide BUN Creatinine Est GFR ( Amer) Est GFR (Non-Af Amer) BUN/Creatinine Ratio Glucose POC Glucose Calculated Osmolality Calcium Phosphorus Magnesium Total Bilirubin 1.5 H Direct Bilirubin 0.4 H Indirect Bilirubin 1.1 AST 71 H ALT 30 Alkaline Phosphatase 82 Ammonia 84 H Troponin I 0.07 H* Serum Total Protein 5.6 L Albumin 2.5 L Globulin 3.1 Albumin/Globulin Ratio 0.8 L 09/27/18 09/27/18 09/27/18 17:02 17:02 13:15 WBC RBC Hgb Hct MCV MCH MCHC RDW Plt Count MPV Immature Gran % Seg Neutrophils % Lymphocytes % Monocytes % Eosinophils % Basophils % Neutrophils # Lymphocytes # Monocytes # Eosinophils # Basophils # Immature Plt Fraction PT INR Sodium 133 L Potassium 3.6 Chloride 98 Carbon Dioxide 29 BUN 10 Creatinine 0.88 Est GFR ( Amer) > 60 Est GFR (Non-Af Amer) > 60 BUN/Creatinine Ratio 11 Glucose 213 H POC Glucose Calculated Osmolality 281 Calcium 8.2 L Phosphorus Magnesium Total Bilirubin Direct Bilirubin Indirect Bilirubin AST ALT Alkaline Phosphatase Ammonia Troponin I 0.09 H* 0.08 H* Serum Total Protein Albumin Globulin Albumin/Globulin Ratio 09/27/18 09/27/18 09/27/18 13:15 13:15 13:15 WBC 3.1 L RBC 3.53 L Hgb 9.6 L Hct 30.1 L MCV 85.3 MCH 27.2 L MCHC 31.9 RDW 16.9 H Plt Count 72 L MPV 9.8 Immature Gran % 0.6 Seg Neutrophils % 76.2 Lymphocytes % 8.7 Monocytes % 10.6 Eosinophils % 2.9 Basophils % 1.0 Neutrophils # 2.4 Lymphocytes # 0.3 L Monocytes # 0.3 Eosinophils # 0.1 Basophils # 0.0 Immature Plt Fraction 6.3 H PT INR Sodium Potassium Chloride Carbon Dioxide BUN Creatinine Est GFR ( Amer) Est GFR (Non-Af Amer) BUN/Creatinine Ratio Glucose POC Glucose Calculated Osmolality Calcium Phosphorus 3.6 Magnesium 1.7 Total Bilirubin Direct Bilirubin Indirect Bilirubin AST ALT Alkaline Phosphatase Ammonia 54 H Troponin I Serum Total Protein Albumin Globulin Albumin/Globulin Ratio 09/27/18 09/27/18 13:15 11:55 WBC RBC Hgb Hct MCV MCH MCHC RDW Plt Count MPV Immature Gran % Seg Neutrophils % Lymphocytes % Monocytes % Eosinophils % Basophils % Neutrophils # Lymphocytes # Monocytes # Eosinophils # Basophils # Immature Plt Fraction PT 13.8 H INR 1.2 Sodium Potassium Chloride Carbon Dioxide BUN Creatinine Est GFR ( Amer) Est GFR (Non-Af Amer) BUN/Creatinine Ratio Glucose POC Glucose 160 H Calculated Osmolality Calcium Phosphorus Magnesium Total Bilirubin Direct Bilirubin Indirect Bilirubin AST ALT Alkaline Phosphatase Ammonia Troponin I Serum Total Protein Albumin Globulin Albumin/Globulin Ratio - Impressions ITS Impressions Guidance Ultrasound 09/27/18 00:00 IMPRESSION: Successful placement of a Transjugular Intrahepatic Portosystemic Shunt. RECOMMENDATIONS: Baseline TIPS ultrasound with color flow Doppler and velocity measurements in one week. D/ / 09/27/2018 15:16:04 Kasey Mederos MD / Ashley Cassidy Interpreting Provider: Kasey Mederos MD Paracentesis Ultrasound 09/27/18 00:00 IMPRESSION: Successful ultrasound guided paracentesis. D/ / Kasey Mederos MD / Kasey Mederos MD Interpreting Provider: Kasey Mederos MD Venogram 09/27/18 00:00 IMPRESSION: Successful placement of a Transjugular Intrahepatic Portosystemic Shunt. RECOMMENDATIONS: Baseline TIPS ultrasound with color flow Doppler and velocity measurements in one week. D/ / 09/27/2018 15:16:04 Kasey Mederos MD / Ashley Cassidy Interpreting Provider: Kasey Mederos MD Percutaneous Transhepatic Tube Insertion 09/27/18 07:00 IMPRESSION: Successful placement of a Transjugular Intrahepatic Portosystemic Shunt. RECOMMENDATIONS: Baseline TIPS ultrasound with color flow Doppler and velocity measurements in one week. D/ / 09/27/2018 15:16:04 Kasey Mederos MD / Ashley Cassidy Interpreting Provider: Kasey Mederos MD Chest X-Ray 09/27/18 13:00 IMPRESSION: No evidence for acute cardiopulmonary process. D/ / Deonte Lopez MD / Deonte Lopez MD Interpreting Provider: Deonte Lopez MD Echocardiogram 09/27/18 13:02 Impressions: LVEF 65%. Normal LV chamber size, wall thickness and function. Normal right ventricular structure and function. Mild tricuspid regurgitation. No pulmonary hypertension. Left Ventricular Wall Motion: Rest Echo Findings All wall segments showed normal motion. Findings: Study Quality * Technically adequate exam. ECG Findings * Sinus rhythm with PACs. Left Ventricle * LVEF 65%. * Normal LV chamber size, wall thickness and systolic function. * Normal left ventricular diastolic function. Right Ventricle * Normal right ventricular structure and function. Left Atrium * Normal left atrial size. Right Atrium * Normal right atrial size. Interatrial Septum * Interatrial septum not well evaluated. Aortic Valve * Trileaflet aortic valve with normal function. * No aortic stenosis. * No aortic regurgitation. Mitral Valve * Mild mitral annular calcification * Trace mitral regurgitation. * No mitral stenosis. Tricuspid Valve * Normal tricuspid valve structure. * No tricuspid stenosis. * Mild tricuspid regurgitation. * Estimated RVSP is 33 mmHg. * Estimated RA pressure is 8 mmHg. * No pulmonary hypertension. Pulmonic Valve * Pulmonic valve is not well visualized. * No pulmonic stenosis. * No pulmonic regurgitation. Aorta * Normally sized aortic root. Pericardium * The pericardium appears normal. IVC * The IVC is dilated. * > 50% respiratory change Date of admission: 09/27/18 11:53 Primary care physician: Pauline Hamilton Discharging clinician: Shaina Melchor Anticipated date of discharge: 09/28/18 - Patient Status Disposition: Home, Self-Care Condition: Good Functional capacity at discharge: independent ambulation Overall status at discharge: patient is back to baseline - Discharge Instructions Instructions: Atrial Fibrillation (DC), Ascites (DC), Esophageal Varices (DC), Anemia (DC) Follow Up With: Eladio Sweeney MD [Partnered Physician] - (Call for follow up appt) Samira Pederson CNP [Partnered Physician] - (Call for follow up appt) Pauline Hamilton [Primary Care Provider] - (Call for follow up appt ) - Diet and Activity Activity: increase activity as tolerated, resume usual activities as tolerated Diet: advance to your usual diet - Hospital Course Hospital course: Mr. Hutchinson is a 58 year old male who is transferred to the ICU after development of atrial fibrillation while undergoing TIPS procedure by interventional radiology. He initially had a rapid heart rate with the atrial fibrillation but proximally 30 minutes after arrival to the ICU his heart rate spontaneously decreased into the normal range. He has been at a normal rate since then. Patient was asymptomatic during the entire time. Troponin is slightly elevated but stat echo performed showed no acute abnormalities of the heart with a normal ejection fraction of 65%. Patient denies ever feeling heart palpitations or been diagnosed with an irregular heart rate. Spoke with cardiology about this patient and they state as he is unable to be anticoagulated for 48 hours after his TIPS procedure he can follow-up as an outpatient for further management of this condition. Patient did have an episode of oxygen desaturation overnight and was placed on nasal cannula which corrected this but has otherwise been satting at a normal rate. Suggested to have an outpatient sleep study done to check for sleep apnea. He was told to follow-up with his gastroenterology physician Dr. Sweeney. He has no complaints and is ready and willing to be discharged home at this time. - Time Spent with Patient Total time spent providing and/or coordinating discharge services: Physical Examination Vital Signs: Vital Signs, Last 4 Hours Temp Pulse Resp BP Pulse Ox 09/28/18 08:51 79 09/28/18 08:35 79 16 121/55 94 09/28/18 07:00 59 115/64 09/28/18 06:56 98.3 F 09/28/18 06:00 53 16 107/45 96 09/28/18 05:00 60 18 94/42 96 General appearance: no acute distress, alert Eyes: nonicteric Effort: normal Auscultation: bilateral: clear Cardiovascular: irregular rhythm, other (normal rate) Gastrointestinal: soft, non-tender, other (slightly distended) Integumentary: normal Extremities: no edema, pink and warm normal mental status, non-focal exam, pupils equal and round mood appropriate, affect normal <Lidya Rodríguez - Last Filed: 09/28/18 09:54> Date of Encounter: 09/28/18 Labs on day of discharge: Labs from last 24 hours 09/28/18 09/28/18 09/28/18 05:15 05:15 05:15 WBC 3.8 L RBC 3.37 L Hgb 9.1 L Hct 29.0 L MCV 86.1 MCH 27.0 L MCHC 31.4 L RDW 16.9 H Plt Count 63 L MPV 10.9 Immature Gran % 0.3 Seg Neutrophils % 71.6 Lymphocytes % 11.1 Monocytes % 11.4 Eosinophils % 4.8 Basophils % 0.8 Neutrophils # 2.7 Lymphocytes # 0.4 L Monocytes # 0.4 Eosinophils # 0.2 Basophils # 0.0 Immature Plt Fraction 8.3 H PT INR Sodium 132 L Potassium 3.4 L Chloride 97 L Carbon Dioxide 30 H BUN 10 Creatinine 0.86 Est GFR ( Amer) > 60 Est GFR (Non-Af Amer) > 60 BUN/Creatinine Ratio 12 Glucose 156 H POC Glucose Calculated Osmolality 276 L Calcium 8.8 Phosphorus 3.7 Magnesium Total Bilirubin 1.7 H Direct Bilirubin 0.6 H Indirect Bilirubin 1.1 AST 64 H ALT 32 Alkaline Phosphatase 80 Ammonia Troponin I Serum Total Protein 5.6 L Albumin 2.4 L 2.4 L Globulin 3.2 Albumin/Globulin Ratio 0.8 L 09/28/18 09/27/18 09/27/18 05:15 21:07 17:02 WBC RBC Hgb Hct MCV MCH MCHC RDW Plt Count MPV Immature Gran % Seg Neutrophils % Lymphocytes % Monocytes % Eosinophils % Basophils % Neutrophils # Lymphocytes # Monocytes # Eosinophils # Basophils # Immature Plt Fraction PT INR Sodium Potassium Chloride Carbon Dioxide BUN Creatinine Est GFR ( Amer) Est GFR (Non-Af Amer) BUN/Creatinine Ratio Glucose POC Glucose Calculated Osmolality Calcium Phosphorus Magnesium Total Bilirubin 1.5 H Direct Bilirubin 0.4 H Indirect Bilirubin 1.1 AST 71 H ALT 30 Alkaline Phosphatase 82 Ammonia 84 H Troponin I 0.07 H* Serum Total Protein 5.6 L Albumin 2.5 L Globulin 3.1 Albumin/Globulin Ratio 0.8 L 09/27/18 09/27/18 09/27/18 17:02 17:02 13:15 WBC RBC Hgb Hct MCV MCH MCHC RDW Plt Count MPV Immature Gran % Seg Neutrophils % Lymphocytes % Monocytes % Eosinophils % Basophils % Neutrophils # Lymphocytes # Monocytes # Eosinophils # Basophils # Immature Plt Fraction PT INR Sodium 133 L Potassium 3.6 Chloride 98 Carbon Dioxide 29 BUN 10 Creatinine 0.88 Est GFR ( Amer) > 60 Est GFR (Non-Af Amer) > 60 BUN/Creatinine Ratio 11 Glucose 213 H POC Glucose Calculated Osmolality 281 Calcium 8.2 L Phosphorus Magnesium Total Bilirubin Direct Bilirubin Indirect Bilirubin AST ALT Alkaline Phosphatase Ammonia Troponin I 0.09 H* 0.08 H* Serum Total Protein Albumin Globulin Albumin/Globulin Ratio 09/27/18 09/27/18 09/27/18 13:15 13:15 13:15 WBC 3.1 L RBC 3.53 L Hgb 9.6 L Hct 30.1 L MCV 85.3 MCH 27.2 L MCHC 31.9 RDW 16.9 H Plt Count 72 L MPV 9.8 Immature Gran % 0.6 Seg Neutrophils % 76.2 Lymphocytes % 8.7 Monocytes % 10.6 Eosinophils % 2.9 Basophils % 1.0 Neutrophils # 2.4 Lymphocytes # 0.3 L Monocytes # 0.3 Eosinophils # 0.1 Basophils # 0.0 Immature Plt Fraction 6.3 H PT INR Sodium Potassium Chloride Carbon Dioxide BUN Creatinine Est GFR ( Amer) Est GFR (Non-Af Amer) BUN/Creatinine Ratio Glucose POC Glucose Calculated Osmolality Calcium Phosphorus 3.6 Magnesium 1.7 Total Bilirubin Direct Bilirubin Indirect Bilirubin AST ALT Alkaline Phosphatase Ammonia 54 H Troponin I Serum Total Protein Albumin Globulin Albumin/Globulin Ratio 09/27/18 09/27/18 13:15 11:55 WBC RBC Hgb Hct MCV MCH MCHC RDW Plt Count MPV Immature Gran % Seg Neutrophils % Lymphocytes % Monocytes % Eosinophils % Basophils % Neutrophils # Lymphocytes # Monocytes # Eosinophils # Basophils # Immature Plt Fraction PT 13.8 H INR 1.2 Sodium Potassium Chloride Carbon Dioxide BUN Creatinine Est GFR ( Amer) Est GFR (Non-Af Amer) BUN/Creatinine Ratio Glucose POC Glucose 160 H Calculated Osmolality Calcium Phosphorus Magnesium Total Bilirubin Direct Bilirubin Indirect Bilirubin AST ALT Alkaline Phosphatase Ammonia Troponin I Serum Total Protein Albumin Globulin Albumin/Globulin Ratio - Impressions ITS Impressions Guidance Ultrasound 09/27/18 00:00 IMPRESSION: Successful placement of a Transjugular Intrahepatic Portosystemic Shunt. RECOMMENDATIONS: Baseline TIPS ultrasound with color flow Doppler and velocity measurements in one week. D/ / 09/27/2018 15:16:04 Kasey Mederos MD / Ashley Cassidy Interpreting Provider: Kasey Mederos MD Paracentesis Ultrasound 09/27/18 00:00 IMPRESSION: Successful ultrasound guided paracentesis. D/ / Kasey Mederos MD / Kasey Mederos MD Interpreting Provider: Kasey Mederos MD Venogram 09/27/18 00:00 IMPRESSION: Successful placement of a Transjugular Intrahepatic Portosystemic Shunt. RECOMMENDATIONS: Baseline TIPS ultrasound with color flow Doppler and velocity measurements in one week. D/ / 09/27/2018 15:16:04 Kasey Mederos MD / Ashley Cassidy Interpreting Provider: Kasey Mederos MD Percutaneous Transhepatic Tube Insertion 09/27/18 07:00 IMPRESSION: Successful placement of a Transjugular Intrahepatic Portosystemic Shunt. RECOMMENDATIONS: Baseline TIPS ultrasound with color flow Doppler and velocity measurements in one week. D/ / 09/27/2018 15:16:04 Kasey Mederos MD / Ashley Cassidy Interpreting Provider: Kasey Mederos MD Chest X-Ray 09/27/18 13:00 IMPRESSION: No evidence for acute cardiopulmonary process. D/ / Deonte Lopez MD / Deonte Lopez MD Interpreting Provider: Deonte Lopez MD Echocardiogram 09/27/18 13:02 Impressions: LVEF 65%. Normal LV chamber size, wall thickness and function. Normal right ventricular structure and function. Mild tricuspid regurgitation. No pulmonary hypertension. Left Ventricular Wall Motion: Rest Echo Findings All wall segments showed normal motion. Findings: Study Quality * Technically adequate exam. ECG Findings * Sinus rhythm with PACs. Left Ventricle * LVEF 65%. * Normal LV chamber size, wall thickness and systolic function. * Normal left ventricular diastolic function. Right Ventricle * Normal right ventricular structure and function. Left Atrium * Normal left atrial size. Right Atrium * Normal right atrial size. Interatrial Septum * Interatrial septum not well evaluated. Aortic Valve * Trileaflet aortic valve with normal function. * No aortic stenosis. * No aortic regurgitation. Mitral Valve * Mild mitral annular calcification * Trace mitral regurgitation. * No mitral stenosis. Tricuspid Valve * Normal tricuspid valve structure. * No tricuspid stenosis. * Mild tricuspid regurgitation. * Estimated RVSP is 33 mmHg. * Estimated RA pressure is 8 mmHg. * No pulmonary hypertension. Pulmonic Valve * Pulmonic valve is not well visualized. * No pulmonic stenosis. * No pulmonic regurgitation. Aorta * Normally sized aortic root. Pericardium * The pericardium appears normal. IVC * The IVC is dilated. * > 50% respiratory change Date of admission: 09/27/18 11:53 Primary care physician: Pauline Hamilton - Hospital Course Hospital course: Mr. Hutchinson is a 58 year old male - Time Spent with Patient Total time spent providing and/or coordinating discharge services: Physical Examination Vital Signs: Vital Signs, Last 4 Hours Temp Pulse Resp BP Pulse Ox 09/28/18 09:11 70 22 94/59 90 09/28/18 08:51 79 09/28/18 08:35 79 16 121/55 94 09/28/18 07:00 59 115/64 09/28/18 06:56 98.3 F 09/28/18 06:00 53 16 107/45 96 - Attending Attestation I examined this patient and my medical decision-making was reviewed with the Resident Physician. I agree with the documented findings, disposition and treatment plan as described except to the extent set forth below. Patient seen and examined. Labs, radiology, chart personally reviewed. 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 I have advised patient as outpatient to consider sleep study since he has some hypoxia during sleep in the ICU. Cardiovascular: stable and there is no more evidence of atrial fibrillation. Patient is to follow up with language pathologist as well as primary care. Resume his home medications with beta blockers. GI: Nutrition per dietary and GI prophylaxis per routine. 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 There is indication of anticoagulation. Renal; urine out put and renal function reviewed Endorcine: blood glucose is monitored Lines: all lines checked and no evidence of infections Skin: skin care to prevent pressure ulcers per nursing routine care Dispo: Discharged home Code: Full. Prognosis. Fair to good
[2018-09-28] MEDS ORDERED: Furosemide 40 MG TABLET PO SCH (09:00)
[2018-09-28] MEDS ORDERED: Aspirin Enteric Coated 81 MG Tablet PO SCH (09:00)
[2018-09-28 09:13] VITALS: BP 94/59
[2018-09-28] MEDS: Budesonide/Formoterol 80/4.5 1 PUFF INH IH SCH (10:57)
--- NOTE | 2018-09-29 12:05 | Electrocardiograph Report ---
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
== END 2018-09-28 11:10 | disposition home or self-care (01) | DRG 270 ==
LOC: INTRAD 06:45 → ICNU 11:53 → INTOOBSV 11:53
PROVIDERS: ADMIT Internal Medicine Pulmonary Disease; ATTEND Internal Medicine Pulmonary Disease